=== PATIENT | female | born 1995 | race Caucasian/White ===

== ENCOUNTER 2019-05-23 19:10 | Outpatient (CLI) | payer BC, SELFPAY ==
[2019-05-23 19:17] VITALS: RESP 16; TEMP 36.4
[2019-05-23] MEDS: acetaminophen 500 mg Tablet 1000 MG PO (20:01)
[2019-05-23 20:31] LABS: Specific Gravity, Urine 1.005 (1.005-1.030); Urine Appearance SL Hazy (CLEAR); Urine Color Yellow (Yellow); pH Urine 8 (5-7)
[2019-05-23 20:32] LABS: Bacteria Urine TRACE; Bilirubin Urine Neg (NEGATIVE); Blood Urine Neg (Negative); Glucose Urine UA Norm (Normal); Ketones Urine Negative (Negative); Leukocyte Esterase Urine Negative (Negative); Nitrate Urine Negative (Negative); Protein Urine Neg (Negative); Urobilinogen Urine Norm (Negative); WBC Urine 0-4 /hpf (0-5)
[2019-05-23 20:38] VITALS: BP 118/72; PULSE 97; RESP 20; TEMP 36.4
== END 2019-05-23 20:50 | disposition home or self-care (01) ==
LOC: OPOB 19:15 → OBGYN 20:41 → OPOB 05-27 17:35
PROVIDERS: Family Provider Family Medicine; Visit Provider Family Medicine
DX: O26.899 Other specified pregnancy related conditions, unspecified trimester (principal); Z3A.00 Weeks of gestation of pregnancy not specified; R10.9 Unspecified abdominal pain
CPT/HCPCS: 81001; 99211

== ENCOUNTER 2019-05-28 15:43 | Outpatient (CLI) | payer BC, SELFPAY ==
[2019-05-28] VITALS (7 sets, daily range): BP systolic 0–157; BP diastolic 0–83; PULSE 98–107; RESP 18; TEMP 37.5; BMI 51.2
[2019-05-28 16:24] LABS: Nitrazine Paper, PH Negative
== END 2019-05-28 16:52 | disposition home or self-care (01) ==
LOC: OPOB 15:56 → OBGYN 16:44 → OPOB 05-30 13:31
PROVIDERS: Family Provider Family Medicine; Visit Provider Family Medicine
DX: O26.899 Other specified pregnancy related conditions, unspecified trimester (principal); Z3A.00 Weeks of gestation of pregnancy not specified; N89.8 Other specified noninflammatory disorders of vagina
CPT/HCPCS: 83986; 99211

== ENCOUNTER 2019-06-15 20:05 | Inpatient (IN) | payer BC, SELFPAY ==
[2019-06-15] VITALS (43 sets, daily range): BP systolic 0–185; BP diastolic 0–111; PULSE 107–130; RESP 18; TEMP 36.7; O2SAT 98–100; BMI 50.6
[2019-06-15] MEDS: lactated ringers 1,000 ML 999 ML IV ×2 (20:35→22:12)
[2019-06-15 20:57] LABS: Basophils % 0.2 %; Eosinophils # 0.1 10^3/uL (0.0-0.8); Eosinophils % 0.8 %; Hematocrit 34.7 % (37.0-47.0); Hemoglobin 10.9 g/dL (11.5-15.3); Lymphocytes # 4.1 10^3/uL (0.8-4.8); Lymphocytes % 31.7 %; Mean Corpuscular HGB Conc 31.4 g/dL (30.0-36.0); Mean Corpuscular Hemoglobin 27.7 pg (28.0-34.0); Mean Corpuscular Volume 88.1 fL (81-99); Mean Platelet Volume 12.6 fL (7.4-10.4); Monocytes # 0.8 10^3/uL (0.2-0.9); Monocytes % 5.9 %; Neutrophils # 7.9 10^3/uL (1.8-7.7); Neutrophils % 60.4 %; Nucleated Red Blood Cells % 0 %; Platelet Count 197 10^3/cmm (130-400); Red Blood Count 3.94 10^6/uL (4.1-5.3); Red Cell Distribution Width 15.9 % (12.1-15.1)
[2019-06-15] MEDS: ondansetron 2 mg/ML SDV 2 mL 4 MG IVP (21:10)
[2019-06-15 21:13] LABS: Slide Review Slide Review Perform
[2019-06-15] MEDS: lactated ringers 1,000 ML 125 ML (21:30)
--- NOTE | 2019-06-15 21:56 | P.ANES_ITS ---
Pre-Anesthetic Assessment Pre-Anesthetic Assessment: Height/Weight: Height 1.6 m Weight 129.727 kg Temp Pulse Resp BP Pulse Ox 98.1 F 120 H 18 164/78 98 06/15/19 20:42 06/15/19 21:53 06/15/19 20:42 06/15/19 21:53 06/15/19 21:52 Preop Diagnosis: IUP Proposed Procedure: epdiural Social: Social History: No alcohol and No tobacco Exam: Pre-Anes Outpt Exam: alert, oriented x 3, clear to auscultation bilaterally and regular rate & rhythm Airway: Cervical ROM: WNL MP: 2 Dentition: Full Pulmonary: Pulmonary: None reported CV/HEM: CV/HEM: HTN : : None reported Hepatic: Hepatic: None reported GI: GI: None reported Metabolic: Metabolic: Morbid obesity Musc/skel: Musc/skel: None reported Neuropsych: Neuropsych: None reported Anesthetic Plan: ASA status: II Anesthesia: Regional (specify below) (epidural) Risk of > 500 ml blood loss (7ml/kg in children): Yes, adequate IV access and fluids planned Meds/Allergies Current Medications: Current Medications Generic Name Dose Route Start Last Admin Trade Name Freq PRN Reason Stop Dose Admin Ondansetron HCl 4 mg 06/15/19 20:41 06/15/19 21:10 Zofran IVP 4 mg Q4H PRN Administration NAUSEA AND VOMITI NG PFSH Anesthesia Female Reproductive History: : 2 Data Anesthesia CBC & Chem 7: 06/15/19 20:44 Other Labs: Laboratory Results - last 48 hr 06/15/19 20:44 WBC 13.0 H RBC 3.94 L Hgb 10.9 L Hct 34.7 L MCV 88.1 MCH 27.7 L MCHC 31.4 RDW 15.9 H Plt Count 197 MPV 12.6 H Neut % (Auto) 60.4 Lymph % (Auto) 31.7 [place] % (Auto) 5.9 Eos % (Auto) 0.8 Baso % (Auto) 0.2 Neut # (Auto) 7.9 H Lymph # (Auto) 4.1 [place] # (Auto) 0.8 Eos # (Auto) 0.1 Baso # (Auto) 0.0 Nucleated RBC % (auto) 0 Nucleated RBCs # 0.0 Cardiac Studies: No Data to Display
--- NOTE | 2019-06-15 21:57 | ANES.PROC ---
Anesthesia Procedures Procedure/Date: 06/15/19 Epidural: Time Out Performed: Yes Consents Signed: Procedure Consent Consent: requested by attending/covering physician, from patient, risks and benefits reviewed and patient agrees to proceed Lumbar Level: L2-L3 Epidural position: sitting Epidural procedure: sterile prep of area, 1% lidocaine to numb the area, 18 g needle, negative for paresthesia passed, test dose given, 1.5% xylocaine 1:200k epi (3 cc negative), placed PCEA, no systemic response, sterile dressing applied, L.U.D. no apparent complications and 0.2% Ropiavacaine @ mls/hr (13) Additional Comments: loss of resistance at 6 cm, threaded to 11 cm, bolused bupivicaine 0.25% 8 cc w/fentanyl 100 mcg
[2019-06-15] MEDS: alum-mag-hydroxide-sime 30 mL UDC PO (22:12)
[2019-06-15] MEDS: oxytocin 30 UNIT/500 ML BAG 600 UNIT IV (23:36)
[2019-06-16] VITALS (19 sets, daily range): BP systolic 0–165; BP diastolic 0–89; PULSE 86–114; RESP 16–19; TEMP 36.4–36.9; O2SAT 94–99
--- NOTE | 2019-06-16 00:13 | P.PCNOB_ITS ---
Delivery Note: Date of delivery: 06/16/19 Pre-Delivery Course: The patient is a 2 para 1-0-0-1 with an estimated gestational age of 38 weeks who presented to the hospital with spontaneous rupture of membranes. Her membranes ruptured approximately an hour prior to admission to the hospital. She presented to the hospital where her contractions became more consistent and painful. An epidural was placed. She progressed to complete without difficulty. Her was unremarkable. She was GBS negative. The remainder of her labs were within normal limits. Delivery: DELIVERY: The patient progressed to complete without difficulty. She delivered a male with a weight of 8 pounds 4 ounces with Apgars of 8, 9. The baby was delivered from the SOREN position. The baby's mouth and nose were suctioned at the site of the perineum. The baby was then completely delivered and placed on the mother's abdomen. The cord was then clamped and cut. There was no nuchal cord. There was no meconium. The placenta and 3 vessel cord were delivered intact shortly thereafter. The perineum and vaginal vault were carefully examined. No lacerations were noted. Both the mother and the baby were in stable condition. 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
[2019-06-16] MEDS: lanolin oint 7 gm 1 APPLIC TOPICAL (02:07)
[2019-06-16] MEDS: benzocaine-menthol 78 gm Canister 1 SPRAY TOPICAL (02:07)
[2019-06-16] MEDS: prenatal vitamin Capsule 1 CAP PO (08:14)
[2019-06-16] MEDS: docusate sodium 100 mg Capsule PO ×2 (08:14→17:41)
[2019-06-16] MEDS: acetaminophen-codeine 300-30mg Tablet PO ×3 (08:39→22:03)
[2019-06-16 12:30] LABS: Hematocrit 30.9 % (37.0-47.0); Hemoglobin 9.6 g/dL (11.5-15.3); Mean Corpuscular HGB Conc 31.1 g/dL (30.0-36.0); Mean Corpuscular Hemoglobin 26.7 pg (28.0-34.0); Mean Corpuscular Volume 86.1 fL (81-99); Mean Platelet Volume 12.1 fL (7.4-10.4); Platelet Count 179 10^3/cmm (130-400); Red Blood Count 3.59 10^6/uL (4.1-5.3); Red Cell Distribution Width 15.9 % (12.1-15.1); White Blood Count 11.1 10^3/uL (4.0-10.0)
[2019-06-17 04:00] VITALS: BP 114/78; PULSE 86; RESP 16; O2SAT 98
[2019-06-17] MEDS: acetaminophen-codeine 300-30mg Tablet PO (04:41)
--- NOTE | 2019-06-17 07:21 | PM.OBGYDC ---
Discharge Providers ARCHITECTURAL DESIGN PROFESSOR Date of Admission: 06/15/19 20:05 Date of Discharge: 06/17/19 Attending Provider at Admission: Rafael Molina MD Attending Provider at Discharge: Rafael Molina MD Diagnoses at Discharge Discharge Diagnosis (1) 38 weeks gestation of : Status: Acute (2) Spontaneous vaginal delivery: Status: Acute Reason for Visit Reason for Visit: Reason For Visit: LABOR Hospital Course Hospital Course: The patient presented to the hospital with spontaneous rupture of membranes. She then progressed to complete and had an unremarkable delivery of a healthy male infant. Please see delivery note for specifics regarding the Labor and Delivery. , the patient has done very well. Her bleeding has been within normal limits. She has breast-fed well. Her pain has been well controlled with Tylenol 3. Information Peripartum Data: Delivery Method: Vaginal Episiotomy description: None Physical Exam Narrative: EXAM NARRATIVE: The patient is alert. She appears comfortable. Her heart has a regular rate and rhythm with no murmurs appreciated. Lungs are clear to auscultation bilaterally. Her fundus is firm and below the umbilicus. Urinary Catheter Management^: Lacey: Cath Placed During This Visit: no Discharge Data Data Completed and Pending: Labs from last 24 hours 06/16/19 12:20 WBC 11.1 H RBC 3.59 L Hgb 9.6 L Hct 30.9 L MCV 86.1 MCH 26.7 L MCHC 31.1 RDW 15.9 H Plt Count 179 MPV 12.1 H Vitals: Last Vital Signs Temp 97.7 F 06/16/19 22:00 Pulse 86 06/17/19 04:00 Resp 16 06/17/19 04:00 BP 114/78 06/17/19 04:00 Pulse Ox 98 06/17/19 04:00 Discharge Plan Discharge Patient Disposition: Home, Self-Care Condition: Stable Prescriptions: New ibuprofen 800 mg Tablet 800 mg PO TID Qty: 30 RF: 0 acetaminophen-codeine 300-30 mg Tablet 1 - 2 tab PO Q4H PRN (Reason: Moderate Pain) Qty: 30 RF: 0 Continued 28 mg iron- 800 mcg Tablet 1 tab PO DAILY Qty: 90 RF: 0 Discontinued ondansetron HCl [Zofran] 4 mg Tablet 4 mg PO Q6H RF: 0 Discharge Orders: Discharge Order (Routine); Ordered 06/17/19 Ordered By: Rafael Molina Referrals: Rafael Molina MD [Family Provider] - 6 Weeks Discharge Diet: Regular Discharge Activity: Limit activity as instructed Discharge Attestations ARCHITECTURAL DESIGN PROFESSOR Time Spent in Discharge Care*: less than 30 min Coding Level of Care Code Acute [place] Mixer for Chg Fwd Diagnoses 38 weeks gestation of Z3A.38 Spontaneous vaginal delivery O80
[2019-06-17] MEDS: prenatal vitamin Capsule 1 CAP PO (08:22)
[2019-06-17] MEDS: docusate sodium 100 mg Capsule PO (08:23)
[2019-06-17 08:24] VITALS: BP 145/86; PULSE 99; RESP 15; TEMP 36.8
[2019-06-17 08:30] VITALS: BP 145/86; PULSE 99; RESP 15; TEMP 36.8
== END 2019-06-17 09:08 | disposition home or self-care (01) | DRG 807 ==
PROVIDERS: Admitting Provider Family Medicine; Family Provider Family Medicine; Visit Provider Family Medicine
DX: O80 Encounter for full-term uncomplicated delivery (principal); Z37.0 Single live birth; Z3A.38 38 weeks gestation of pregnancy
CPT/HCPCS: 12345; 51702; 59409; 83986; 85025; 85027; 96375; 99211; J2405; J2795

== ENCOUNTER 2020-01-04 07:02 | Outpatient (CLI) | payer BC, SELFPAY ==
--- NOTE | 2020-01-04 07:18 | US_ITS ---
WS: [id number] ULTRASOUND BREAST RIGHT TECHNIQUE: Ultrasound right breast focused area of concern. CLINICAL INFORMATION: RIGHT BREAST LUMP COMPARISON: None. FINDINGS: Ultrasound right breast 10:00 position. In the area of concern, is a focal echogenic lesion measuring 8.8 x 4.0 x 9.9 mm most consistent with a lipoma or fibroadenolipoma. Findings have a benign appeara nce. Incidentally noted is a normal-appearing lymph node at the 10:00 position 7 cm from the nipple measur ing 4.4 x 3.6 x 4.4 mm US/US breast RT limited* [id number] IMPRESSION: BI-RADS 2 benign Recommend annual screening mammography age 40
== END 2020-01-04 07:03 | disposition home or self-care (01) ==
LOC: RAD 07:07
PROVIDERS: PCP Family Medicine; Visit Provider Family Medicine
DX: N63.11 Unspecified lump in the right breast, upper outer quadrant (principal)
CPT/HCPCS: 76642

== ENCOUNTER 2020-02-18 18:42 | Emergency (ER) | payer BC, OTHER, SELFPAY ==
[2020-02-18 18:59] VITALS: BP 163/94; PULSE 98; RESP 18; TEMP 36.5; O2SAT 99; BMI 51.3
--- NOTE | 2020-02-18 19:07 | W.ED.ABDPA2 ---
HPI - Abdominal Pain General: Chief Complaint: Abdominal Pain Stated Complaint: ab pain, reffered from urgent care Time Seen by Provider: 02/18/20 19:07 Source: patient Mode of arrival: ambulatory Limitations: no limitations History of Present Illness: HPI narrative: Patient comes in today with bilateral flank pain and suprapubic abdominal pain. Patient denies any vaginal discharge or bleeding. Patient has a history of PCOS. Patient appears well. Patient appears in mild pain. MD elicited complaint: abdominal pain Review of Systems General: Reports: 10 or more systems reviewed and unremarkable except in HPI and below GI: Reports: abdominal pain (suprapubic) : Reports: flank pain and difficulty voiding PFS ED PFSH: Social History (Updated 02/18/20 @ 18:00 by Hiwot Valdez LPN) Smoking and tobacco status: never smoked Physical Exam Const: COMMON NORMALS: no acute distress and patient oriented x3 GENERAL APPEARANCE: cooperative HENMT: COMMON NORMALS: normocephalic and Normal external nose present HEAD & SCALP: normal to inspection and normocephalic NOSE: Normal external nose present MOUTH: Normal oral and palatal mucosa present Eye: GENERAL EYE: appearance normal, both eyes and all related structures Neck/C-Spine: COMMON NORMALS: full ROM Chest: COMMONS NORMALS: normal inspection of the chest Resp: COMMON NORMALS: normal respiratory effort EFFORT & INSPECTION: Yes able to speak in complete sentences Cardio: COMMON NORMALS: regular rate and regular rhythm RATE: regular rate RHYTHM: regular rhythm GI: PALPATION: Yes Tenderness to palpation present (GI) (suprapubic) : BLADDER/KIDNEY EXAM: Yes CVA tenderness bilateral (mild) Back/Pelvis: COMMON NORMALS: thoracic and lumbar spine normal to inspection GENERAL BACK: Yes CVA tenderness Extremity: COMMON NORMALS: normal to inspection Neuro: COMMON NORMALS: patient oriented x3 and moves all extremities Psych: COMMON NORMALS: mental status grossly normal and cooperative Skin: COMMON NORMALS: no rashes or lesions noted GENERAL SKIN EXAM: no rashes or lesions noted Course Vital Signs: Vital signs: Vital Signs Temperature 97.4 F L 02/18/20 20:05 Pulse Rate 87 02/18/20 20:05 Respiratory Rate 18 02/18/20 20:05 Blood Pressure 118/84 02/18/20 20:05 Pulse Oximetry 99 02/18/20 20:05 MDM - Abdominal Pain MDM Narrative: Medical decision making narrative: Patient comes in today with bilateral flank pain and lower abdominal pain. Patient appears well. Patient appears in no acute distress. Respirations are even lungs are clear to auscultation. Abdomen soft nontender. No acute distress is noted. Differential diagnosis includes but not limited to appendicitis, colitis, pyelonephritis, cystitis. Urinalysis was clear. CBC shows a mild elevation of white count of 12.4. Otherwise laboratory values were normal. CT scan of the abdomen pelvis noted a colitis but otherwise normal exam. Reviewed with patient recommended treatment with Cipro and Flagyl for 5 days. Encourage plenty of fluids and rest and follow-up with primary care for further treatment and evaluation. Patient reported understanding. Lab Data: Labs: Lab Results 02/18/20 02/18/20 02/18/20 Range/Units 19:10 19:18 19:18 WBC 12.4 H (4.0-10.0) 10^3/ uL RBC 5.23 (4.1-5.3) 10^6/u L Hgb 13.1 (11.5-15.3) g/dL Hct 42.3 (37.0-47.0) % MCV 80.9 L (81-99) fL MCH 25.0 L (28.0-34.0) pg MCHC 31.0 (30.0-36.0) g/dL RDW 15.2 H (12.1-15.1) % Plt Count 282 (130-400) 10^3/c mm MPV 10.9 H (7.4-10.4) fL Neut % (Auto) 58.4 % Lymph % (Auto) 33.1 % [place] % (Auto) 4.6 % Eos % (Auto) 2.9 % Baso % (Auto) 0.4 % Neut # (Auto) 7.24 (1.8-7.7) 10^3/u L Lymph # (Auto) 4.1 (0.8-4.8) 10^3/u L [place] # (Auto) 0.6 (0.2-0.9) 10^3/u L Eos # (Auto) 0.4 (0.0-0.8) 10^3/u L Baso # (Auto) 0.1 (0.0-0.1) 10^3/u L Nucleated RBC % (a uto) 0 % Nucleated RBCs # 0.0 /100WBC Sodium 135 L (136-145) mmol/L Potassium 4.2 (3.5-5.1) mmol/L Chloride 100 (98-107) mmol/L Carbon Dioxide 24 (22-29) mmol/L Anion Gap 15.2 (5-19) BUN 12 (6-20) mg/dL Creatinine 0.7 (0.5-0.9) mg/dL GFR Calculation 100.4 (90-130) mL/min Glucose 116 H (65-115) mg/dL Calculated Osmolal ity 281 L (285-295) mOsm/k g Calcium 9.6 (8.5-10.5) mg/dL Total Bilirubin 0.2 (0.15-1.2) mg/dL AST 30 (0-32) U/L ALT 28 (0-33) U/L Alkaline Phosphata se 161 H (35-105) IU/L Total Protein 7.7 (6.6-8.7) g/dL Albumin 4.5 (3.5-5.2) g/dL Globulin 3.2 (1.3-4.6) g/dL Lipase 31 (13-60) U/L HCG, Qual (Negative) Urine Color Yellow (Yellow) Urine Appearance Clear (CLEAR) Urine pH 6.5 (5-7) Ur Specific Gravit y 1.010 (1.005-1.030) Urine Protein Neg (Negative) Urine Glucose (UA) Norm (Normal) Urine Ketones Negative (Negative) Urine Blood Neg (Negative) Urine Nitrate Negative (Negative) Urine Bilirubin Neg (Negative) Urine Urobilinogen Neg (Negative) mg/dL Ur Leukocyte Zaida ase Negative (Negative) 02/18/20 Range/Units 19:18 WBC (4.0-10.0) 10^3/ uL RBC (4.1-5.3) 10^6/u L Hgb (11.5-15.3) g/dL Hct (37.0-47.0) % MCV (81-99) fL MCH (28.0-34.0) pg MCHC (30.0-36.0) g/dL RDW (12.1-15.1) % Plt Count (130-400) 10^3/c mm MPV (7.4-10.4) fL Neut % (Auto) % Lymph % (Auto) % [place] % (Auto) % Eos % (Auto) % Baso % (Auto) % Neut # (Auto) (1.8-7.7) 10^3/u L Lymph # (Auto) (0.8-4.8) 10^3/u L [place] # (Auto) (0.2-0.9) 10^3/u L Eos # (Auto) (0.0-0.8) 10^3/u L Baso # (Auto) (0.0-0.1) 10^3/u L Nucleated RBC % (a uto) % Nucleated RBCs # /100WBC Sodium (136-145) mmol/L Potassium (3.5-5.1) mmol/L Chloride (98-107) mmol/L Carbon Dioxide (22-29) mmol/L Anion Gap (5-19) BUN (6-20) mg/dL Creatinine (0.5-0.9) mg/dL GFR Calculation (90-130) mL/min Glucose (65-115) mg/dL Calculated Osmolal ity (285-295) mOsm/k g Calcium (8.5-10.5) mg/dL Total Bilirubin (0.15-1.2) mg/dL AST (0-32) U/L ALT (0-33) U/L Alkaline Phosphata se (35-105) IU/L Total Protein (6.6-8.7) g/dL Albumin (3.5-5.2) g/dL Globulin (1.3-4.6) g/dL Lipase (13-60) U/L HCG, Qual Negative (Negative) Urine Color (Yellow) Urine Appearance (CLEAR) Urine pH (5-7) Ur Specific Gravit y (1.005-1.030) Urine Protein (Negative) Urine Glucose (UA) (Normal) Urine Ketones (Negative) Urine Blood (Negative) Urine Nitrate (Negative) Urine Bilirubin (Negative) Urine Urobilinogen (Negative) mg/dL Ur Leukocyte Zaida ase (Negative) Discharge Plan Discharge Patient Disposition: Home Clinical Impression: Colitis Condition: Stable Prescriptions: New ciprofloxacin HCl 500 mg tablet 500 mg PO BID Qty: 10 RF: 0 metronidazole 500 mg tablet 500 mg PO BID Qty: 10 RF: 0 ondansetron HCl 4 mg tablet 4 mg PO Q8H PRN (Reason: nausea and vomiting) Qty: 7 RF: 0 No Action Mirena 20 mcg/24 hours (5 yrs) 52 mg Intrauterine Device See Rx Instructions .ROUTE .COMPLEX RF: 0 ibuprofen 800 mg tablet 800 mg PO TID PRN (Reason: Pain) RF: 0 Discharge Orders: Discharge Order (Routine); Ordered 02/18/20 Ordered By: Jacob Sims Referrals: Rafael Molina MD [Primary Care Provider] - Discharge Diet: Usual diet Discharge Activity: Increase activity as tolerated Patient Instructions: Infectious Colitis (ED) Activity Restrictions/Additional Instructions: Drink plenty of fluids. Take medications as directed. Follow-up with primary care for further treatment and evaluation. Return to the ER for new concerns. 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
[2020-02-18 19:35] LABS: Basophils # 0.1 10^3/uL (0.0-0.1); Basophils % 0.4 %; Eosinophils # 0.4 10^3/uL (0.0-0.8); Eosinophils % 2.9 %; Hematocrit 42.3 % (37.0-47.0); Hemoglobin 13.1 g/dL (11.5-15.3); Lymphocytes # 4.1 10^3/uL (0.8-4.8); Lymphocytes % 33.1 %; Mean Corpuscular Volume 80.9 fL (81-99); Mean Platelet Volume 10.9 fL (7.4-10.4); Monocytes # 0.6 10^3/uL (0.2-0.9); Monocytes % 4.6 %; Neutrophils # 7.24 10^3/uL (1.8-7.7); Neutrophils % 58.4 %; Nucleated Red Blood Cells % 0 %; Platelet Count 282 10^3/cmm (130-400); Red Blood Count 5.23 10^6/uL (4.1-5.3); Red Cell Distribution Width 15.2 % (12.1-15.1); White Blood Count 12.4 10^3/uL (4.0-10.0)
[2020-02-18] MEDS: sodium chloride 0.9% 1,000 ML 999 ML IV (19:35)
[2020-02-18] MEDS: ketorolac 30 mg/mL INJ 15 MG IVP (19:35)
[2020-02-18 19:36] LABS: Add Urine Microscopic? NO
[2020-02-18 19:41] LABS: Bilirubin Urine Neg (Negative); Blood Urine Neg (Negative); Glucose Urine UA Norm (Normal); Ketones Urine Negative (Negative); Leukocyte Esterase Urine Negative (Negative); Nitrate Urine Negative (Negative); Protein Urine Neg (Negative); Urine Appearance Clear (CLEAR); Urine Color Yellow (Yellow); Urobilinogen Urine Neg (Negative); pH Urine 6.5 (5-7)
--- NOTE | 2020-02-18 19:44 | CTR_ITS ---
PROCEDURE INFORMATION: Exam: CT Abdomen And Pelvis With Contrast Exam date and time: 02/18/2020 8:09 PM Age: 25 years old Clinical indication: Abdominal pain; Additional info: Diffuse abd pain TECHNIQUE: Imaging protocol: Computed tomography of the abdomen and pelvis with intravenous contrast. Radiation optimization: All CT scans at this facility use at least one of these dose optimization techniques: automated exposure control; mA and/or kV adjustment per patient size (includes targeted exams where dose is matched to clinical indication); or iterative reconstruction. Contrast material: OMNI 300; Contrast volume: 95 ml; Contrast route: INTRAVENOUS (IV); COMPARISON: CT abdomen pelvis w con* [id number] 02/26/2017 12:31 AM RADIATION DOSE METRICS: Total DLP (mGy-cm): 2330.88 FINDINGS: Liver: Normal. No mass. Gallbladder and bile ducts: Normal. No calcified stones. No ductal dilation. Pancreas: Normal. No ductal dilation. Spleen: Normal. No splenomegaly. Adrenals: Normal. No mass. Kidneys and ureters: Normal. No hydronephrosis. Stomach and bowel: Probable peristaltic contraction of the right colon near the junction of the right transverse colon and hepatic flexure versus focal mild colitis. Appendix: Normal appendix. Intraperitoneal space: Unremarkable. No free air. No significant fluid collection. Vasculature: Unremarkable. No abdominal aortic aneurysm. Lymph nodes: Unremarkable. No enlarged lymph nodes. Urinary bladder: Unremarkable as visualized. Reproductive: IUD within the uterus. Bones/joints: Unremarkable. No acute fracture. Soft tissues: Unremarkable. CT/CT abdomen pelvis w con* [id number] IMPRESSION: Probable peristaltic contraction of the right colon near the junction of the right transverse colon and hepatic flexure versus focal mild colitis. Radiation Dose CTDIVOL = (mGy): DLP = 2330.88 (mGy-cm)
[2020-02-18] MEDS: ondansetron 2 mg/ML SDV 2 mL 4 MG IVP (19:45)
[2020-02-18 19:52] LABS: HCG, Serum Qual Negative (Negative)
[2020-02-18 19:56] LABS: Alanine Aminotransferase 28 U/L (0-33); Albumin Level 4.5 g/dL (3.5-5.2); Alkaline Phosphatase 161 IU/L (35-105); Anion Gap 15.2 (5-19); Aspartate Amino Transferase 30 U/L (0-32); Blood Urea Nitrogen 12 mg/dL (6-20); Calcium 9.6 mg/dL (8.5-10.5); Carbon Dioxide 24 mmol/L (22-29); Chloride 100 mmol/L (98-107); Globulin 3.2 g/dL (1.3-4.6); Glomerular Filtration Rate 100.4 mL/min (90-130); Glucose 116 mg/dL (65-115); Lipase 31 U/L (13-60); Osmolality Calculated 281 mOsm/kg (285-295); Potassium 4.2 mmol/L (3.5-5.1); Sodium 135 mmol/L (136-145); Total Bilirubin 0.2 mg/dL (0.15-1.2); Total Protein 7.7 g/dL (6.6-8.7)
[2020-02-18 20:05] VITALS: BP 118/84; PULSE 87; RESP 18; TEMP 36.3; O2SAT 99
[2020-02-18] MEDS: iohexol 300 mg/mL 100 mL Btl IV (20:14)
[2020-02-18] MEDS: ciprofloxacin 500 mg Tablet PO (20:52)
[2020-02-18] MEDS: metroNIDAZOLE 500 MG Tablet PO (20:52)
[2020-02-18 21:11] VITALS: BP 144/75; PULSE 84; RESP 16; TEMP 36.2; O2SAT 99
== END 2020-02-18 21:03 | disposition home or self-care (01) ==
PROVIDERS: Emergency Medicine; Emergency Provider Nurse Practitioner Family; PCP Family Medicine
DX: K52.9 Noninfective gastroenteritis and colitis, unspecified (principal)
CPT/HCPCS: 12345; 74177; 80053; 81000; 81003; 83690; 84703; 85025; 96361; 96374; 96375; 99283; 99284; J1885; J2405; J7030; Q9967

== ENCOUNTER → 2020-07-23 17:14 | Outpatient (BNVA) | payer SELFPAY | PROVIDERS: PCP Family Medicine; Visit Provider Nurse Practitioner Family | DX: M79.674 Pain in right toe(s) (principal) | CPT/HCPCS: 73630 ==

== ENCOUNTER → 2021-03-02 09:57 | Outpatient (BNVA) | payer OTHER, SELFPAY | PROVIDERS: PCP Family Medicine | DX: Z20.822 Contact with and (suspected) exposure to COVID-19 (principal) | CPT/HCPCS: 87635 ==

== ENCOUNTER 2021-05-02 17:29 | Emergency (ER) | payer SELFPAY ==
[2021-05-02 17:53] VITALS: BP 158/103; PULSE 95; RESP 18; TEMP 36.8; O2SAT 99; BMI 47.5
[2021-05-02 19:22] LABS: Bilirubin Urine Neg (Negative); Blood Urine 2+ (Negative); Glucose Urine UA Norm (Normal); Ketones Urine Negative (Negative); Nitrate Urine Negative (Negative); Protein Urine Neg (Negative); Specific Gravity, Urine 1.015 (1.005-1.030); Urine Appearance Clear (CLEAR); Urine Color Straw (Yellow); Urobilinogen Urine Norm (Negative); pH Urine 6 (5-7)
[2021-05-02 19:23] LABS: Add Urine Culture? No; Add Urine Microscopic? YES; Bacteria Urine TRACE /hpf; Leukocyte Esterase Urine Trace (Negative); Mucus Urine TRACE /hpf; RBC Urine 0-4 /hpf (0-2)
[2021-05-02 20:00] VITALS: BP 143/93; PULSE 89; RESP 18; O2SAT 100
[2021-05-02 20:29] LABS: Basophils # 0.1 10^3/uL (0.0-0.1); Basophils % 0.5 %; Eosinophils # 0.3 10^3/uL (0.0-0.8); Eosinophils % 2.9 %; Hematocrit 43.5 % (37.0-47.0); Hemoglobin 13.9 g/dL (11.5-15.3); Lymphocytes # 2.8 10^3/uL (0.8-4.8); Lymphocytes % 28.1 %; Mean Corpuscular Hemoglobin 27.5 pg (28.0-34.0); Mean Corpuscular Volume 86.1 fl (81-99); Mean Platelet Volume 11.7 fL (7.4-10.4); Monocytes # 0.6 10^3/uL (0.2-0.9); Monocytes % 5.9 %; Neutrophils # 6.14 10^3/uL (1.8-7.7); Neutrophils % 62.2 %; Nucleated Red Blood Cells % 0 %; Platelet Count 237 10^3/cmm (130-400); Red Blood Count 5.05 10^6/uL (4.1-5.3); Red Cell Distribution Width 14.1 % (12.1-15.1); White Blood Count 9.9 10^3/uL (4.0-10.0)
[2021-05-02 20:46] LABS: HCG, Serum Qual Negative (Negative)
[2021-05-02 20:51] LABS: Alanine Aminotransferase 12 U/L (0-33); Albumin Level 4.2 g/dL (3.5-5.2); Alkaline Phosphatase 100 IU/L (35-105); Anion Gap 18.1 (5-19); Aspartate Amino Transferase 12 U/L (0-32); Blood Urea Nitrogen 11 mg/dL (6-20); Calcium 8.4 mg/dL (8.5-10.5); Carbon Dioxide 21 mmol/L (22-29); Chloride 103 mmol/L (98-107); Globulin 2.5 g/dL (1.3-4.6); Glomerular Filtration Rate 99.6 mL/min (90-130); Glucose 83 mg/dL (65-115); Lipase 26 U/L (13-60); Osmolality Calculated 285 mOsm/kg (285-295); Potassium 4.1 mmol/L (3.5-5.1); Sodium 138 mmol/L (136-145); Total Bilirubin 0.2 mg/dL (0.15-1.2); Total Protein 6.7 g/dL (6.6-8.7)
--- NOTE | 2021-05-02 21:41 | CTR_ITS ---
PROCEDURE INFORMATION: Exam: CT Abdomen And Pelvis With Contrast Exam date and time: 05/02/2021 9:41 PM Age: 26 years old Clinical indication: Nausea and vomiting; Abdominal pain; Flank; Right; Additional info: Abd pain, n/v TECHNIQUE: Imaging protocol: Computed tomography of the abdomen and pelvis with contrast. Radiation optimization: All CT scans at this facility use at least one of these dose optimization techniques: automated exposure control; mA and/or kV adjustment per patient size (includes targeted exams where dose is matched to clinical indication); or iterative reconstruction. Contrast material: OMNI 300; Contrast volume: 95 ml; Contrast route: INTRAVENOUS (IV); COMPARISON: CT abdomen pelvis w con* [id number] 02/18/2020 8:08 PM RADIATION DOSE METRICS: Total DLP (mGy-cm): FINDINGS: Diaphragm: Hiatal hernia. Liver: Normal. No mass. Gallbladder and bile ducts: Normal. No calcified stones. No ductal dilation. Pancreas: Normal. No ductal dilation. Spleen: Normal. No splenomegaly. Adrenal glands: Normal. No mass. Kidneys and ureters: Normal. No hydronephrosis. Stomach and bowel: Unremarkable. No obstruction. No mucosal thickening. Appendix: The appendix is visualized and is normal. Intraperitoneal space: Unremarkable. No free air. No significant fluid collection. Vasculature: Unremarkable. No abdominal aortic aneurysm. Lymph nodes: Unremarkable. No enlarged lymph nodes. Urinary bladder: Unremarkable as visualized. Reproductive: Retroflexed retroverted uterus. IUD in standard location within the endometrial cavity. 3.0 cm oval cyst or dominant follicle in the right ovary, Hounsfield units less than 20. The left ovary is unremarkable. Bones/joints: Unremarkable. No acute fracture. Soft tissues: Unremarkable. CT/CT abdomen pelvis w con* [id number] IMPRESSION: 1. No acute abnormality identified in the abdomen or pelvis. 2. 3.0 cm cyst or dominant follicle in the right ovary. No further imaging is recommended. (Reference: Dashawn) References: Dashawn et al. Management of Incidental Adnexal Findings on CT and MRI: A White Paper of the ACR Incidental Findings Committee, J Am Nancy Radiol. 2019;17(2):248-254.
[2021-05-02] MEDS: iohexol 300 mg/mL 100 mL Btl IV (21:51)
--- NOTE | 2021-05-02 21:56 | ED_ITS ---
HPI - Abdominal Pain General: Chief Complaint: Abdominal Pain Stated Complaint: dizzy, dehydrated, abd pains Time Seen by Provider: 05/02/21 21:40 History of Present Illness: HPI narrative: Patient comes in today with complaints of right lower quadrant abdominal pain. Patient reports pain since Saturday. Patient was seen at urgent care and was referred to the ER for further evaluation and treatment with suspicion for pyelonephritis. Patient appears mildly unwell but nontoxic. Patient appears in moderate pain. Review of Systems General: Reports: 10 or more systems reviewed and unremarkable except in HPI and below : Reports: other (Right lower abdomen pain) [facility] ED PFSH: Social History (Updated 02/18/20 @ 18:00 by Hiwot Valdez LPN) Smoking and tobacco status: never smoked Physical Exam Const: COMMON NORMALS: no acute distress and patient oriented x3 GENERAL APPEARANCE: cooperative HENMT: COMMON NORMALS: normocephalic, TM's normal bilaterally and Normal external nose present HEAD & SCALP: normal to inspection and normocephalic NOSE: Normal external nose present TYMPANIC MEMBRANE: TM's normal bilaterally MOUTH: Normal oral and palatal mucosa present THROAT: posterior oropharynx normal Eye: GENERAL EYE: appearance normal, both eyes and all related structures Neck/C-Spine: COMMON NORMALS: full ROM Lymph: LYMPHATIC: no lymphadenopathy noted Chest: COMMONS NORMALS: normal inspection of the chest Resp: COMMON NORMALS: normal respiratory effort EFFORT & INSPECTION: Yes able to speak in complete sentences Cardio: COMMON NORMALS: regular rate and regular rhythm RATE: regular rate RHYTHM: regular rhythm GI: COMMON NORMALS: Soft to palpation PALPATION: Yes Soft to palpation and Yes Tenderness to palpation present (GI) Details: RLQ : BLADDER/KIDNEY EXAM: Yes CVA tenderness on the right Back/Pelvis: COMMON NORMALS: thoracic and lumbar spine normal to inspection GENERAL BACK: Yes CVA tenderness Extremity: COMMON NORMALS: normal to inspection Neuro: COMMON NORMALS: patient oriented x3 and moves all extremities Psych: COMMON NORMALS: mental status grossly normal and cooperative Skin: COMMON NORMALS: no rashes or lesions noted GENERAL SKIN EXAM: no rashes or lesions noted Course Vital Signs: Vital signs: Vital Signs Temperature 98.2 F 05/02/21 17:53 Pulse Rate 89 05/02/21 22:04 Respiratory Rate 18 05/02/21 20:00 Blood Pressure 151/93 05/02/21 22:04 Pulse Oximetry 100 05/02/21 22:04 MDM - Abdominal Pain MDM Narrative: Medical decision making narrative: 26-year-old female comes in today with complaints of right lower quadrant pain. On exam patient appears in moderate pain and mildly unwell. Exam notes right lower quadrant abdominal tenderness, tenderness of the right flank with percussion, vital signs are normal. Respirations are even. Differential diagnosis includes but not limited to appendicitis, ovarian cyst, pyelonephritis, UTI, constipation. Laboratory values were unremarkable. Urine had some blood in his white blood cells in it and a trace of esterase leukocyte. CT of the abdomen and pelvis indicated a ovarian cyst without any other active pathology. Patient was given a dose of Toradol for her ovarian pain. With discussion we went ahead and started patient on Cipro to cover for a urinary tract infection. She will be on 250 of Cipro twice a day for 5 days. Recommended patient follow-up with SOFTWARE BUSINESS ANALYST regarding her ovarian cyst. Recommend return to the ER for worsening symptoms or new concerns. Patient reported understanding. Lab Data: Labs: Lab Results 05/02/21 05/02/21 05/02/21 17:50 20:20 20:20 WBC 9.9 10^3/uL 10^3/ uL (4.0-10.0) RBC 5.05 10^6/uL 10^6 /uL (4.1-5.3) Hgb 13.9 g/dL g/dL (11.5-15.3) Hct 43.5 % % (37.0-47.0) MCV 86.1 fl fl (81-99) MCH 27.5 pg L pg (28.0-34.0) MCHC 32.0 g/dL g/dL (30.0-36.0) RDW 14.1 % % (12.1-15.1) Plt Count 237 10^3/cmm 10^3 /cmm (130-400) MPV 11.7 fL H fL (7.4-10.4) Neut % (Auto) 62.2 % % Lymph % (Auto) 28.1 % % [place] % (Auto) 5.9 % % Eos % (Auto) 2.9 % % Baso % (Auto) 0.5 % % Neut # (Auto) 6.14 10^3/uL 10^3 /uL (1.8-7.7) Lymph # (Auto) 2.8 10^3/uL 10^3/ uL (0.8-4.8) [place] # (Auto) 0.6 10^3/uL 10^3/ uL (0.2-0.9) Eos # (Auto) 0.3 10^3/uL 10^3/ uL (0.0-0.8) Baso # (Auto) 0.1 10^3/uL 10^3/ uL (0.0-0.1) Nucleated RBC % (a uto) 0 % % Nucleated RBCs # 0.0 /100WBC /100W BC Sodium 138 mmol/L mmol/L (136-145) Potassium 4.1 mmol/L mmol/L (3.5-5.1) Chloride 103 mmol/L mmol/L (98-107) Carbon Dioxide 21 mmol/L L mmol/ L (22-29) Anion Gap 18.1 (5-19) BUN 11 mg/dL mg/dL (6-20) Creatinine 0.7 mg/dL mg/dL (0.5-0.9) GFR Calculation 99.6 mL/min mL/mi n (90-130) Glucose 83 mg/dL mg/dL (65-115) Calculated Osmolal ity 285 mOsm/kg mOsm/ kg (285-295) Calcium 8.4 mg/dL L mg/dL (8.5-10.5) Total Bilirubin 0.2 mg/dL mg/dL (0.15-1.2) AST 12 U/L U/L (0-32) ALT 12 U/L U/L (0-33) Alkaline Phosphata se 100 IU/L IU/L (35-105) Total Protein 6.7 g/dL g/dL (6.6-8.7) Albumin 4.2 g/dL g/dL (3.5-5.2) Globulin 2.5 g/dL g/dL (1.3-4.6) Lipase 26 U/L U/L (13-60) HCG, Qual Urine Color Straw (Yellow) Urine Appearance Clear (CLEAR) Urine pH 6 (5-7) Ur Specific [place] 1.015 (1.005-1.030) Urine Protein Neg (Negative) Urine Glucose (UA) Norm (Normal) Urine Ketones Negative (Negative) Urine Blood 2+ H (Negative) Urine Nitrate Negative (Negative) Urine Bilirubin Neg (Negative) Urine Urobilinogen Norm mg/dL mg/dL (Negative) Ur Leukocyte Za[place] ase Trace H (Negative) Urine RBC 0-4 /hpf H /hpf (0-2) Urine WBC 5-10 /hpf H /hpf (0-5) Ur Squamous Epith Cells 5-10 /hpf H /hpf (0-5) Amorphous Sediment Not Reportable Urine Bacteria Trace /hpf /hpf (NONE) Urine Mucus Trace /hpf /hpf 05/02/21 20:20 WBC RBC Hgb Hct MCV MCH MCHC RDW Plt Count MPV Neut % (Auto) Lymph % (Auto) [place] % (Auto) Eos % (Auto) Baso % (Auto) Neut # (Auto) Lymph # (Auto) [place] # (Auto) Eos # (Auto) Baso # (Auto) Nucleated RBC % (a uto) Nucleated RBCs # Sodium Potassium Chloride Carbon Dioxide Anion Gap BUN Creatinine GFR Calculation Glucose Calculated Osmolal ity Calcium Total Bilirubin AST ALT Alkaline Phosphata se Total Protein Albumin Globulin Lipase HCG, Qual Negative (Negative) Urine Color Urine Appearance Urine pH Ur Specific Gravit y Urine Protein Urine Glucose (UA) Urine Ketones Urine Blood Urine Nitrate Urine Bilirubin Urine Urobilinogen Ur Leukocyte Zaida ase Urine RBC Urine WBC Ur Squamous Epith Cells Amorphous Sediment Urine Bacteria Urine Mucus Discharge Plan Discharge Patient Disposition: Home Clinical Impression: Cyst of right ovary Condition: Stable Prescriptions: New Cipro 250 mg tablet 250 mg PO BID Qty: 10 RF: 0 hydrocodone-acetaminophen 5-325 mg tablet 1 tab PO Q8H PRN (Reason: pain) Qty: 6 RF: 0 No Action Mirena 20 mcg/24 hours (5 yrs) 52 mg Intrauterine Device See Rx Instructions .ROUTE .COMPLEX RF: 0 Discharge Orders: Discharge ED (Routine); Ordered 05/02/21 Ordered By: Jacob Sims Referrals: Rafael Molina MD [Primary Care Provider] - Discharge Diet: Usual diet Discharge Activity: Increase activity as tolerated Patient Instructions: Ovarian Cyst (ED), Opioid Safety Activity Restrictions/Additional Instructions: Healthy diet and activity. Use acetaminophen and ibuprofen to control pain. Take ciprofloxacin 250 twice a day for 5 days. Use hydrocodone 1 tablet every 8 hours as needed for severe pain. Follow-up with SOFTWARE BUSINESS ANALYST regarding ovarian cyst. Return to ER for new concerns or worsening symptoms. Coding Level of Care Code ED Service Crew Leader for Iram Briones
[2021-05-02] MEDS: sodium chloride 0.9% 1,000 ML 999 ML IV (21:58)
[2021-05-02] MEDS: ondansetron 2 mg/ML SDV 2 mL 4 MG IVP (21:59)
[2021-05-02 22:04] VITALS: BP 151/93; PULSE 89; O2SAT 100
[2021-05-02] MEDS: ketorolac 30 mg/mL INJ 15 MG IVP (22:28)
[2021-05-02] MEDS: ciprofloxacin 500 mg Tablet PO (23:42)
[2021-05-02 23:44] VITALS: BP 151/93; PULSE 89; O2SAT 100
--- NOTE | 2021-05-04 14:38 | DCPLANNER ---
talent solutions manager had message to schedule a follow up appointment for patient with [facility]. talent solutions manager called the [facility], spoke with López, gave clinic patients information. talent solutions manager was told that patients information would be printed and reviewed. Clinic will call patient with appointment information.
--- NOTE | 2021-05-16 12:43 | DCPLANNER ---
booking manager called [facility] to confirm that a follow up appointment had been scheduled for patient. booking manager spoke with López, was told that clinic was unable to reach patient to schedule a follow up appointment.
== END 2021-05-02 23:45 | disposition home or self-care (01) ==
PROVIDERS: Emergency Provider Nurse Practitioner Family; PCP Family Medicine
DX: N83.201 Unspecified ovarian cyst, right side (principal)
CPT/HCPCS: 74177; 80053; 81000; 81001; 83690; 84703; 85025; 87400; 87880; 96361; 96374; 96375; 99284; J1885; J2405; J7030; Q9967

== ENCOUNTER 2022-03-07 21:19 | Emergency (ER) | payer OTHER, SELFPAY ==
[2022-03-07 21:39] VITALS: BP 148/89; PULSE 136; RESP 18; TEMP 38.8; O2SAT 99; BMI 49.6
--- NOTE | 2022-03-07 22:18 | W.ED.FEVER ---
HPI - Fever General: Chief Complaint: Fever Stated Complaint: fever,throat pain Time Seen by Provider: 03/07/22 21:52 Source: patient Mode of arrival: ambulatory Limitations: no limitations History of Present Illness: 27-year-old female states over the last 2 days she been having a fever she has had a sore throat she also having some flank pain and dysuria she had a history of kidney infections in the past she is febrile here had some nausea denies any diarrhea she denies any worsening improving factors. Denies headache. Associated symptoms: Reports flank pain and nausea; Deny chest pain or headache(s) Review of Systems Const: Reports: fever(s), fatigue and malaise Eyes: Denies: blurry vision or eye discomfort ENMT: Denies: throat pain or dental pain Card: Denies: chest pain Resp: Denies: dyspnea GI: Reports: nausea : Reports: flank pain and difficulty voiding Musc: Denies: neck pain or back pain Skin/Breast: Denies: rash Neuro: Denies: headache(s) Psych: Denies: depression Tera/Lymph: Denies: easy bruising All/Imm: Denies: urticaria PFSH ED PFSH: Medical History (Updated 03/08/22 @ 00:20 by Torsten Myles MD) No pertinent past medical history Social History Smoking and tobacco status: never smoked Physical Exam Const: COMMON NORMALS: no acute distress, patient oriented x3 and healthy appearing HENMT: COMMON NORMALS: normocephalic and atraumatic HEAD & SCALP: normocephalic and atraumatic Eye: COMMON NORMALS: Equal, round and reactive pupils present and EOMs intact bilaterally PUPIL: Yes Equal, round and reactive pupils present Neck/C-Spine: COMMON NORMALS: full ROM and supple Chest: COMMONS NORMALS: normal inspection of the chest and normal palpation of entire chest wall Resp: COMMON NORMALS: normal respiratory effort, No retractions, No use of accessory muscles and clear to auscultation bilaterally AUSCULTATION: clear to auscultation bilaterally Cardio: COMMON NORMALS: regular rhythm and No murmurs present (Cardio) RATE: tachycardic RHYTHM: regular rhythm GI: COMMON NORMALS: Normal to inspection, nondistended, normoactive bowel sounds present, Soft to palpation, non-tender and no masses PALPATION: Yes Soft to palpation Extremity: COMMON NORMALS: normal to inspection and full ROM Neuro: COMMON NORMALS: patient oriented x3, moves all extremities and no focal motor deficits Psych: COMMON NORMALS: mental status grossly normal, Normal thought process present and cooperative THOUGHT PROCESS: Normal thought process present Skin: COMMON NORMALS: no rashes or lesions noted and no wounds GENERAL SKIN EXAM: no rashes or lesions noted Course Vital Signs: Vital signs: Vital Signs Temperature 101.8 F H 03/07/22 21:39 Pulse Rate 130 H 03/08/22 00:22 Respiratory Rate 15 03/08/22 00:22 Blood Pressure 132/71 03/08/22 00:22 Pulse Oximetry 98 03/08/22 00:22 Oxygen Delivery Me thod 03/07/22 21:39 MDM - Fever Medical Decision Making Patient presents here with a fever cough sore throat likely viral syndrome her work-up here is negative her temperature heart rate is improved she is stable for discharge she is to follow-up with her PCP and return if worsening she understands agrees to plan. Lab Data : 03/07/22 22:35 03/07/22 22:35 Radiology Impressions Abdomen/Pelvis CT 03/07/22 23:14 IMPRESSION: 1. Negative for acute inflammatory process in the abdomen or pelvis. 2. IUD in the uterine cavity. 3. Right deep pelvis probable punctate calcified phlebolith, similar to prior exam. Chest X-Ray 03/07/22 23:14 IMPRESSION: No acute findings. Laboratory Results WBC 10.5 10^3/uL (4.0-10.0) H 03/07/22 22:35 RBC 4.53 10^6/uL (4.1-5.3) 03/07/22 22:35 Hgb 12.9 g/dL (11.5-15.3) 03/07/22 22:35 Hct 39.4 % (37.0-47.0) 03/07/22 22:35 MCV 87.0 fl (81-99) 03/07/22 22:35 MCH 28.5 pg (28.0-34.0) 03/07/22 22:35 MCHC 32.7 g/dL (30.0-36.0) 03/07/22 22:35 RDW 13.1 % (12.1-15.1) 03/07/22 22:35 Plt Count 195 10^3/cmm (130-400) 03/07/22 22:35 MPV 11.1 fL (7.4-10.4) H 03/07/22 22:35 Neut % (Auto) 78.2 % 03/07/22 22:35 Lymph % (Auto) 14.0 % 03/07/22 22:35 [place] % (Auto) 5.9 % 03/07/22 22:35 Eos % (Auto) 1.0 % 03/07/22 22:35 Baso % (Auto) 0.3 % 03/07/22:35 Neut # (Auto) 8.19 10^3/uL (1.8-7.7) H 03/07/22 22:35 Lymph # (Auto) 1.5 10^3/uL (0.8-4.8) 03/07/22 22:35 [place] # (Auto) 0.6 10^3/uL (0.2-0.9) 03/07/22 22:35 Eos # (Auto) 0.1 10^3/uL (0.0-0.8) 03/07/22 22:35 Baso # (Auto) 0.0 10^3/uL (0.0-0.1) 03/07/22 22:35 Nucleated RBC % (auto) 0 % 03/07/22 22:35 Nucleated RBCs # 0.0 /100WBC 03/07/22 22:35 Sodium 135 mmol/L (136-145) L 03/07/22 22:35 Potassium 3.9 mmol/L (3.5-5.1) 03/07/22 22:35 Chloride 99 mmol/L (98-107) 03/07/22 22:35 Carbon Dioxide 24 mmol/L (22-29) 03/07/22 22:35 Anion Gap 15.9 (5-19) 03/07/22 22:35 BUN 10 mg/dL (6-20) 03/07/22 22:35 Creatinine 0.7 mg/dL (0.5-0.9) 03/07/22 22:35 GFR Calculation 98.9 mL/min (90-130) 03/07/22 22:35 Glucose 99 mg/dL (65-115) 03/07/22 22:35 Calculated Osmolality 279 mOsm/kg (285-295) L 03/07/22:35 Lactate 1.2 mmol/L (0.5-2.2) 03/07/22 22:35 Calcium 8.9 mg/dL (8.5-10.5) 03/07/22 22:35 Total Bilirubin 0.3 mg/dL (0.15-1.2) 03/07/22 22:35 AST 14 U/L (0-32) 03/07/22 22:35 ALT 14 U/L (0-33) 03/07/22 22:35 Alkaline Phosphatase 129 U/L (35-105) H 03/07/22 22:35 Total Protein 7.1 g/dL (6.6-8.7) 03/07/22: Albumin 4.0 g/dL (3.5-5.2) 03/07/22: Globulin 3.1 g/dL (1.3-4.6) 03/07/22:35 Lipase 30 U/L (13-60) 03/07/22 22:35 HCG, Qual Negative (Negative) 03/07/22 22:30 Urine Color Yellow (Yellow) 03/07/22: Urine Appearance Clear (CLEAR) 03/07/22 22: Urine pH 5 (5-7) 03/07/22 22:30 Ur Specific [place] 1.015 (1.005-1.030) 03/07/22 22:30 Urine Protein Neg (Negative) 03/07/22 22: Urine Glucose (UA) Norm (Normal) 03/07/22 22:30 Urine Ketones Negative (Negative) 03/07/22 22:30 Urine Blood 2+ (Negative) H 03/07/22 22:30 Urine Nitrate Negative (Negative) 03/07/22 22:30 Urine Bilirubin Neg (Negative) 03/07/22 22: Urine Urobilinogen Norm mg/dL (Negative) 03/07/22 22:30 Ur Leukocyte Esterase Negative (Negative) 03/07/22 22:30 Urine RBC 5-10 /hpf (0-2) H 03/07/22 22:30 Urine WBC 0-4 /hpf (0-5) H 03/07/22 22:30 Ur Squamous Epith Cells 5-10 /hpf (0-5) H 03/07/22 22:30 Amorphous Sediment Not Reportable 03/07/22 22:30 Urine Bacteria Trace /hpf (NONE) 03/07/22 22:30 Influenza Type A Ag negative (Negative) 03/07/22 22:00 Influenza Type B Ag negative (Negative) 03/07/22 22:00 SARS-CoV-2 Ag (Rapid) negative (Negative) 03/07/22 23:41 Group A Strep Rapid Negative (Negative) 03/07/22 22:00 Discharge Plan Discharge Patient Disposition: Home Clinical Impression: Viral infection, Fever Condition: Stable Prescriptions: New ondansetron 4 mg tablet,disintegrating 4 mg PO Q6H PRN (Reason: nausea and vomiting) Qty: 14 0RF No Action albuterol sulfate [Ventolin HFA] 90 mcg/actuation HFA aerosol inhaler 2 puff inhalation Q6H PRN (Reason: shortness of breath or wheezing) Qty: 8.5 0RF azithromycin 250 mg tablet See Rx Instructions PO .COMPLEX Qty: 6 0RF Rx Instructions: take 500 mg today (day 1), then 250 mg for 4 days (days 2-5) PO prednisone 20 mg tablet 40 mg PO DAILY 5 Days Qty: 10 0RF hydrocodone-acetaminophen 5-325 mg tablet 1 tab PO Q8H PRN (Reason: pain) Qty: 6 0RF Mirena 20 mcg/24 hours (5 yrs) 52 mg Intrauterine Device See Rx Instructions .ROUTE .COMPLEX Rx Instructions: mcg intrauterinely DIRECTED PT HAS THIS IN NOW. Discharge Orders: Discharge ED (Routine); Ordered 03/08/22 Ordered By: Torsten Myles Referrals: Rafael Molina MD [Primary Care Provider] - 1-3 days Discharge Diet: Advance as tolerated Discharge Activity: Resume usual activity Patient Instructions: Fever - Adult, Viral Syndrome (ED) Coding Level of Care Code ED Senior Marketing Coordinator for Chg Fwd Exam Comprehensive
[2022-03-07 22:37] LABS: Basophils % 0.3 %; Eosinophils # 0.1 10^3/uL (0.0-0.8); Hematocrit 39.4 % (37.0-47.0); Hemoglobin 12.9 g/dL (11.5-15.3); Lymphocytes # 1.5 10^3/uL (0.8-4.8); Mean Corpuscular HGB Conc 32.7 g/dL (30.0-36.0); Mean Corpuscular Hemoglobin 28.5 pg (28.0-34.0); Mean Platelet Volume 11.1 fL (7.4-10.4); Monocytes # 0.6 10^3/uL (0.2-0.9); Monocytes % 5.9 %; Neutrophils # 8.19 10^3/uL (1.8-7.7); Neutrophils % 78.2 %; Nucleated Red Blood Cells % 0 %; Platelet Count 195 10^3/cmm (130-400); Red Blood Count 4.53 10^6/uL (4.1-5.3); Red Cell Distribution Width 13.1 % (12.1-15.1); White Blood Count 10.5 10^3/uL (4.0-10.0)
[2022-03-07] MEDS: ondansetron 2 mg/ML SDV 2 mL 4 MG IVP (22:39)
[2022-03-07] MEDS: sodium chloride 0.9% 1,000 ML 999 ML IV (22:39)
[2022-03-07] MEDS: acetaminophen 325 mg Tablet 650 MG PO (22:44)
[2022-03-07 22:56] LABS: Add Urine Microscopic? YES; Bilirubin Urine Neg (Negative); Blood Urine 2+ (Negative); Glucose Urine UA Norm (Normal); Ketones Urine Negative (Negative); Leukocyte Esterase Urine Negative (Negative); Nitrate Urine Negative (Negative); Protein Urine Neg (Negative); Specific Gravity, Urine 1.015 (1.005-1.030); Urine Appearance Clear (CLEAR); Urine Color Yellow (Yellow); Urobilinogen Urine Norm (Negative); pH Urine 5 (5-7)
[2022-03-07 22:58] LABS: Add Urine Culture? No; Bacteria Urine TRACE /hpf; WBC Urine 0-4 /hpf (0-5)
[2022-03-07 22:58] LABS: Rapid Strep A Test Negative (Negative)
[2022-03-07 22:59] LABS: HCG Qualitative Urine. Negative (Negative)
[2022-03-07 23:12] LABS: Influenza A by IFA negative (Negative); Influenza B by IFA negative (Negative)
--- NOTE | 2022-03-07 23:14 | XRR_ITS ---
PROCEDURE INFORMATION: Exam: XR Chest Exam date and time: 03/07/2022 11:23 PM Age: 27 years old Clinical indication: Pain; Chest pressure; Additional info: Fever TECHNIQUE: Imaging protocol: Radiologic exam of the chest. Views: 1 view. COMPARISON: CR XR chest 1V [id number] 01/13/2019 8:53 AM FINDINGS: Lungs: Unremarkable. No consolidation. Pleural spaces: Unremarkable. No pleural effusion. No pneumothorax. Heart/Mediastinum: Unremarkable. No cardiomegaly. Bones/joints: Unremarkable. XR/XR chest 1V portable [id number] IMPRESSION: No acute findings.
--- NOTE | 2022-03-07 23:14 | CTR_ITS ---
PROCEDURE INFORMATION: Exam: CT Abdomen And Pelvis Without Contrast Exam date and time: 03/07/2022 11:29 PM Age: 27 years old Clinical indication: Abdominal pain; Flank; Right; Additional info: Flank pain TECHNIQUE: Imaging protocol: Computed tomography of the abdomen and pelvis without contrast. Radiation optimization: All CT scans at this facility use at least one of these dose optimization techniques: automated exposure control; mA and/or kV adjustment per patient size (includes targeted exams where dose is matched to clinical indication); or iterative reconstruction. COMPARISON: CT abdomen pelvis w con* [id number] 05/02/2021 9:50 PM RADIATION DOSE METRICS: Total DLP (mGy-cm): 1285.83 FINDINGS: Liver: Normal. No mass. Gallbladder and bile ducts: Normal. No calcified stones. No ductal dilation. Pancreas: Normal. No ductal dilation. Spleen: Normal. No splenomegaly. Adrenal glands: Normal. No mass. Kidneys and ureters: Normal. No hydronephrosis. Stomach and bowel: Unremarkable. No obstruction. No mucosal thickening. Appendix: No evidence of appendicitis. Intraperitoneal space: Unremarkable. No free air. No significant fluid collection. Vasculature: Right deep pelvis probable punctate calcified phlebolith, similar to prior exam. Lymph nodes: Unremarkable. No enlarged lymph nodes. Urinary bladder: Unremarkable as visualized. Reproductive: IUD in the uterine cavity. Bones/joints: Unremarkable. No acute fracture. Soft tissues: Unremarkable. CT/CT abdomen pelvis wo con [id number] IMPRESSION: 1. Negative for acute inflammatory process in the abdomen or pelvis. 2. IUD in the uterine cavity. 3. Right deep pelvis probable punctate calcified phlebolith, similar to prior exam.
[2022-03-07 23:15] LABS: Alanine Aminotransferase 14 U/L (0-33); Alkaline Phosphatase 129 U/L (35-105); Anion Gap 15.9 (5-19); Aspartate Amino Transferase 14 U/L (0-32); Blood Urea Nitrogen 10 mg/dL (6-20); Calcium 8.9 mg/dL (8.5-10.5); Carbon Dioxide 24 mmol/L (22-29); Chloride 99 mmol/L (98-107); Globulin 3.1 g/dL (1.3-4.6); Glomerular Filtration Rate 98.9 mL/min (90-130); Glucose 99 mg/dL (65-115); Lactate (Lactic Acid level) 1.2 mmol/L (0.5-2.2); Lipase 30 U/L (13-60); Osmolality Calculated 279 mOsm/kg (285-295); Potassium 3.9 mmol/L (3.5-5.1); Sodium 135 mmol/L (136-145); Total Bilirubin 0.3 mg/dL (0.15-1.2); Total Protein 7.1 g/dL (6.6-8.7)
[2022-03-07] MEDS: propranolol 20 mg Tablet PO (23:53)
[2022-03-08] LABS: SARS Covid-2 Antigen negative (Negative)
[2022-03-08 00:22] VITALS: BP 132/71; PULSE 130; RESP 15; O2SAT 98
== END 2022-03-08 00:34 | disposition home or self-care (01) ==
PROVIDERS: Emergency Provider Emergency Medicine; PCP Family Medicine
DX: B34.9 Viral infection, unspecified (principal); R50.9 Fever, unspecified
CPT/HCPCS: 71045; 74176; 80053; 81001; 81025; 83605; 83690; 85025; 87081; 87426; 87804; 87880; 96374; 99285; J2405; J7030

== ENCOUNTER 2022-09-27 18:57 | Emergency (ER) | payer OTHER, SELFPAY ==
[2022-09-27 19:05] VITALS: BP 145/96; PULSE 78; RESP 18; TEMP 36.7; O2SAT 98
--- NOTE | 2022-09-27 19:24 | XRR_ITS ---
PROCEDURE INFORMATION: Exam: XR Right Tibia and Fibula Exam date and time: 09/27/2022 7:27 PM Age: 27 years old Clinical indication: Pain; Lower leg; Right; Additional info: Fall injury TECHNIQUE: Imaging protocol: Radiologic exam of the right tibia and fibula. Views: 2 views. COMPARISON: No relevant prior studies available. FINDINGS: Bones/joints: Normal. Soft tissues: Normal. XR/XR tibia fibula RT 2V [id number] IMPRESSION: No acute findings.
--- NOTE | 2022-09-27 19:26 | XRR_ITS ---
PROCEDURE INFORMATION: Exam: XR Right Knee Exam date and time: 09/27/2022 7:39 PM Age: 27 years old Clinical indication: Pain; Knee; Right; Additional info: Fall injury TECHNIQUE: Imaging protocol: Radiologic exam of the right knee. Views: 3 views. COMPARISON: CR (LOW EXM, ) 09/27/2022 7:27 PM FINDINGS: Bones/joints: Normal. Soft tissues: Normal. XR/XR knee RT 3V* [id number] IMPRESSION: No acute findings.
--- NOTE | 2022-09-27 20:00 | XRR_ITS ---
PROCEDURE INFORMATION: Exam: XR Lumbosacral Spine Exam date and time: 09/27/2022 8:04 PM Age: 27 years old Clinical indication: Low back pain; Additional info: Fall with low back pain TECHNIQUE: Imaging protocol: Radiologic exam of the lumbosacral spine. Views: 2 or 3 views. COMPARISON: CT abdomen pelvis wo con [id number] 03/07/2022 11:29 PM FINDINGS: Limitations: Study is limited due to patient body habitus. Bones/joints: There is very mild scoliosis concave to the right. No fracture is identified.. Intervertebral disc spaces are preserved. Soft tissues: Unremarkable. XR/XR lumbar spine 2-3V* [id number] IMPRESSION: No acute finding
--- NOTE | 2022-09-27 20:04 | ED_ITS ---
HPI - Fall General: Chief Complaint: Fall Stated Complaint: Rt Ankle Injury Time Seen by Provider: 09/27/22 19:23 History of Present Illness: Patient is a 27-year-old female comes to the ED with right knee pain and low back pain after fall. Fall occurred just prior to arrival. Patient says she was carrying her 3-year-old child and she walked into her garage which has a slick finish over the concrete. Her shoes were wet and it caused her to slip. She was falling backwards and her right knee folded back underneath her body and she fell back on her lower back. Denies any head trauma or loss of consciousness. Since fall she has been having right knee pain. She rates the knee pain a 7 out of 10. she is unable to do any weightbearing on right leg since fall. Any flexion of right knee causes worsening pain. She says her knee feels better if it straightened out. Weightbearing causes shooting pain up and down the leg. Lower back pain is rated as moderate and located in the right lumbar region. Patient has not had anything for pain before coming to the ED Associated symptoms-after fall: Denies abdominal pain, chest pain, headache(s), hematuria or neck pain Review of Systems Const: Denies: fever(s), chills or fatigue Eyes: Denies: change in vision or eye discomfort ENMT: Denies: throat pain, odynophagia, nasal discharge or nasal congestion Card: Denies: chest pain, palpitations, edema, swelling of feet/ankles, dyspnea on exertion or orthopnea Resp: Denies: dyspnea, productive cough or non-productive cough GI: Denies: abdominal pain, nausea, vomiting, diarrhea, constipation or hematochezia : Denies: flank pain, dysuria or hematuria Musc: Reports: back pain (Lower back), extremity pain (Right knee pain) and limited range of motion (Right knee); Denies: neck pain or extremity swelling Skin/Breast: Denies: rash or new lesions Neuro: Denies: headache(s), numbness in extremities or weakness in extremities [facility] ED PFSH: Medical History (Updated 09/28/22 @ 00:50 by SEGUNDO Delgado) No pertinent family history No pertinent past medical history Social History Smoking and tobacco status: never smoked Physical Exam Const: COMMON NORMALS: patient oriented x3 and alert GENERAL APPEARANCE: cooperative NUTRITIONAL APPEARANCE: obese HENMT: COMMON NORMALS: normocephalic HEAD & SCALP: normocephalic MOUTH: Normal oral and palatal mucosa present THROAT: posterior oropharynx normal and uvula midline Neck/C-Spine: COMMON NORMALS: supple GENERAL: Yes normal visual inspection Resp: COMMON NORMALS: normal respiratory effort, No retractions, No use of accessory muscles and clear to auscultation bilaterally AUSCULTATION: clear to auscultation bilaterally Cardio: COMMON NORMALS: regular rate, regular rhythm, S1 normal heart sound present, S2 normal heart sound present, No gallops present (Cardio), No clicks present (Cardio), No murmurs present (Cardio) and Peripheral pulses 2+ throughout RATE: regular rate RHYTHM: regular rhythm HEART SOUNDS: S1 normal heart sound present and S2 normal heart sound present PERIPHERAL PULSES: Peripheral pulses 2+ throughout GI: COMMON NORMALS: Normal to inspection, nondistended, normoactive bowel sounds present, Soft to palpation, non-tender and no masses PALPATION: Yes Soft to palpation : COMMON NORMALS: Yes no CVA tenderness BLADDER/KIDNEY EXAM: Yes no CVA tenderness Back/Pelvis: COMMON NORMALS: no CVA tenderness LUMBAR SPINE/LOWER BACK: Yes lumbar ROM normal, Yes lumbar spinal tenderness Lumbar spinal tenderness location: L3, L4 and L5 and Yes paraspinal muscle tenderness Lumbar paraspinal muscle tenderness: right Extremity: NARRATIVE EXTREMITY EXAM: Right knee?no visible deformity seen. Mild swelling noted. No ecchymosis. Full range of motion but endorses pain with flexion. Tenderness over patella and in anterior and inferior aspect of knee. Neurovascular intact distally. Neuro: COMMON NORMALS: patient oriented x3 SENSORIUM/ORIENTATION: Yes alert GAIT: Yes Normal gait present Skin: GENERAL SKIN EXAM: dry skin Course Vital Signs: Vital signs: Vital Signs Temperature 98.1 F 09/27/22 19:05 Pulse Rate 78 09/27/22 19:05 Respiratory Rate 18 09/27/22 19:05 Blood Pressure 145/96 09/27/22 19:05 Pulse Oximetry 98 09/27/22 19:05 Oxygen Delivery Me thod Room Air 09/27/22 19:05 MDM - Fall Medical Decision Making Patient is a 27-year-old female who comes to the ED with right knee and lower back pain after fall. Fall occurred just prior to arrival and she slipped on concrete floor and fell backwards. Denies any head trauma or loss of consciousness but says that her right leg tucked under her body when she went down and she hit her lumbar spine on concrete. Vitals are stable. She does have some right lumbar paraspinal muscle tenderness and right knee exam shows no visible deformity seen. Mild swelling noted. No ecchymosis. Full range of motion but endorses pain with flexion. Tenderness over patella and in anterior and inferior aspect of knee. Neurovascular intact distally. X-rays of knee and lumbar spine showed no acute fractures or findings. Given my concern for potential soft tissue or tendon injury and knee patient was given crutches and I placed order with case management for patient be referred to Ortho for follow-up on knee injury. She was stable for discharge home and diagnosed with right knee injury and lumbar back pain. She was sent home with a prescription for ibuprofen and muscle relaxer. Return to ED precautions given. Patient understood and agreed with plan. Lab Data Radiology Impressions Tibia/Fibula X-Ray 09/27/22 19:24 IMPRESSION: No acute findings. Knee X-Ray 09/27/22 19:26 IMPRESSION: No acute findings. Lumbar Spine X-Ray 09/27/22 20:00 IMPRESSION: No acute finding Discharge Plan Discharge Patient Disposition: Home Clinical Impression: Lumbar back pain Injury of knee, right Qualifiers: Encounter type: initial encounter Qualified Code(s): S89.91XA - Unspecified injury of right lower leg, initial encounter Condition: Stable Prescriptions: New ibuprofen 800 mg tablet 800 mg PO Q8H PRN (Reason: pain) Qty: 30 0RF methocarbamol 750 mg tablet 750 mg PO Q8H PRN (Reason: Muscle spasms and pain) Qty: 20 0RF No Action albuterol sulfate [Ventolin HFA] 90 mcg/actuation HFA aerosol inhaler 2 puff inhalation Q6H PRN (Reason: shortness of breath or wheezing) Qty: 8.5 0RF propranolol 20 mg tablet 20 mg PO BID ibuprofen 600 mg tablet 600 mg PO Q8H PRN (Reason: pain) Qty: 30 0RF clindamycin HCl 300 mg capsule 600 mg PO Q6H 7 Days Qty: 56 0RF Mirena 20 mcg/24 hours (5 yrs) 52 mg Intrauterine Device See Rx Instructions .ROUTE .COMPLEX Rx Instructions: mcg intrauterinely DIRECTED PT HAS THIS IN NOW. ondansetron 4 mg tablet,disintegrating 4 mg PO Q6H PRN (Reason: nausea and vomiting) Qty: 14 0RF Discharge Orders: Discharge ED (Routine); Ordered 09/27/22 Ordered By: Marty Odonnell Referrals: Rafael Molina MD [Primary Care Provider] - Discharge Diet: Regular Discharge Activity: Use walker/crutches as instructed Patient Instructions: Acute Low Back Pain (ED), Knee Pain (ED) Activity Restrictions/Additional Instructions: Follow-up with medical provider as directed. Case management should be contacte d in the next several days to set up an appointment with Ortho for follow-up on knee injury. Use crutches and limit weightbearing until cleared by Ortho. You can rest, ice and elevate leg and apply cold pack on back as well. To lower back stretches daily. Take medications as prescribed. Return to the ER or your medical provider if condition worsens. Please read and understand discharge instructions. Thank you for choosing [facility] for your healthcare needs today. Please realize this is an emergency room and that we are providing you with a medical screening exam and this may not be complete and all inclusive of all the testing and or work up that you may need to determine your ailment or severity of your illness. It is very important that you follow up as instructed or that you return to the Emergency Department should you have concerns or if your condition changes or worsens in any way. 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
[2022-09-27] MEDS: HYDROcodone-acetaminophen 5-325 mg Tablet 1 TAB PO (20:28)
[2022-09-27] MEDS: orphenadrine 30 mg/mL Inj 2 mL 60 MG IM (21:08)
[2022-09-27] MEDS: ondansetron 4 MG Tablet PO (21:09)
--- NOTE | 2022-09-28 11:57 | PC.NURSE ---
Addendum entered by Christine Keyes 10/15/22 11:26: Patient had a follow up appointment at ortho - patient did attend appointment. Addendum entered by Christine Keyes 10/02/22 13:37: Patient has a follow up appointment scheduled for Saturday, October 08, 2022 at 8:[address] Stapleton at ortho. Original Note: Patient seen in the ED on 09/28/22. Patient referred to ortho for right knee injury. [facility] sent message to ortho to call patient with an appt.
== END 2022-09-27 21:27 | disposition home or self-care (01) ==
PROVIDERS: Emergency Provider Physician Assistant; PCP Family Medicine
DX: S89.91XA Unspecified injury of right lower leg, initial encounter (principal); M54.50 Low back pain, unspecified; W01.0XXA Fall on same level from slipping, tripping and stumbling without subsequent striking against object, initial encounter
CPT/HCPCS: 72100; 73562; 73590; 96372; 99284; E0114; J2360; Q0162

== ENCOUNTER → 2022-10-08 07:59 | Outpatient (BNVA) | payer OTHER, SELFPAY | PROVIDERS: PCP Family Medicine; Referring Provider Physician Assistant; Visit Provider Specialist | DX: S89.91XA Unspecified injury of right lower leg, initial encounter (principal); W01.0XXA Fall on same level from slipping, tripping and stumbling without subsequent striking against object, initial encounter | CPT/HCPCS: 73560; 73565; 73590 ==

== ENCOUNTER 2022-10-24 15:47 | Outpatient (CLI) | payer OTHER, SELFPAY ==
--- NOTE | 2022-10-24 16:00 | MR_ITS ---
WS: [id number] MRI RIGHT KNEE HISTORY: right knee injury COMPARISON: Knee radiographs 10/08/2022 Anterior cruciate ligament: Intact. Posterior cruciate ligament: Intact. Medial collateral ligament: Intact. Posterior lateral corner structures: Intact. Medial menisci: Intact. Normal signal, size and shape. Lateral meniscus: Abnormal signal with blunting of the posterior horn free edge on the sagittal seque nce. This is only seen on one image. On the coronal image there is vertical increased T2 signal sugge sting a radial tear at a similar location. Extensor mechanism: Distal quadriceps tendon and patellar tendons are intact. Fluid and soft tissue: No joint effusion. No Pfeiffer's cyst. Osseous and articular structures: Patellofemoral compartment: Normal. Medial compartment: Normal. Lateral compartment: There is a very tiny area of increased T2 signal in the central compartment invo lving the cartilage. This may involve the free edge of the posterior horn of the lateral meniscus. Th ere is slight blunting. Suspect radial tear with very small focal chondromalacia. MR/MR knee RT wo con* [id number] IMPRESSION: 1. Very minimal blunting free edge posterior horn lateral meniscus with corres ponding findings on the coronal plane suggesting a radial tear. 2. Focal very minimal chondromalacia involving the cartilage in the lateral breanne int space associated with the suspicious radial tear. 3. No joint effusion.
== END 2022-10-24 15:48 | disposition home or self-care (01) ==
PROVIDERS: PCP Family Medicine; Visit Provider Specialist
DX: M25.561 Pain in right knee (principal); M94.261 Chondromalacia, right knee
CPT/HCPCS: 73721

== ENCOUNTER 2022-12-19 13:14 | Emergency (ER) | payer OTHER, SELFPAY ==
[2022-12-19] VITALS (7 sets, daily range): BP systolic 132–153; BP diastolic 82–105; PULSE 68–91; RESP 17; TEMP 36.7; O2SAT 99–100
--- NOTE | 2022-12-19 14:46 | CTR_ITS ---
PROCEDURE INFORMATION: Exam: CT Abdomen And Pelvis With Contrast Exam date and time: 12/19/2022 4:26 PM Age: 27 years old Clinical indication: Abdominal pain; Localized; Left lower quadrant (llq) TECHNIQUE: Imaging protocol: Computed tomography of the abdomen and pelvis with contrast. Radiation optimization: All CT scans at this facility use at least one of these dose optimization techniques: automated exposure control; mA and/or kV adjustment per patient size (includes targeted exams where dose is matched to clinical indication); or iterative reconstruction. Contrast material: OMNI 350; Contrast volume: 100 ml; Contrast route: INTRAVENOUS (IV); REPORTING DATA: Count of CT and Cardiac NM exams in prior 12 months: This patient has received [address] and 0 known cardiac nuclear medicine studies in the 12 months prior to the current study. COMPARISON: CT abdomen pelvis wo con [id number] 03/07/2022 11:29 PM RADIATION DOSE METRICS: Total DLP (mGy-cm): 1316.13 FINDINGS: Liver: Normal. No mass. Gallbladder and bile ducts: Normal. No calcified stones. No ductal dilation. Pancreas: Normal. No ductal dilation. Spleen: Normal. No splenomegaly. Adrenal glands: Normal. No mass. Kidneys and ureters: Normal. No hydronephrosis. Stomach and bowel: Unremarkable. No obstruction. No mucosal thickening. Appendix: No evidence of appendicitis. Intraperitoneal space: Unremarkable. No free air. No significant fluid collection. Vasculature: Unremarkable. No abdominal aortic aneurysm. Lymph nodes: Unremarkable. No enlarged lymph nodes. Urinary bladder: Unremarkable as visualized. Reproductive: IUD noted in expected positioning. 3.3 cm left ovarian cyst noted. Bones/joints: No acute fracture. Soft tissues: Unremarkable. CT/CT abdomen pelvis w con* [id number] IMPRESSION: No acute findings. 3.3 cm left ovarian cyst noted, most likely a dominant follicular cyst.
--- NOTE | 2022-12-19 14:46 | US_ITS ---
WS: [id number] US transvaginal [id number] HISTORY: eval for torsion right COMPARISON: 08/17/2021 Uterus: 7.3 cm x 4.0 cm x 3.7 cm. Normal size retroverted uterus. No fibroid or mass identified. Endometrium: 1.0 cm. IUD is present along the endometrium. The position of the uterus is difficult to determine the exact location. Cannot exclude embedded IUD on imaging submitted but the course appear s appropriate. There is a small amount of thickening involving the distal fundal portion of the endom etrium but no mass Right ovary: 2.8 cm x 2.4 cm x 1.5 cm. Normal size ovary with normal vascularity. Dominant corpus lut eal cyst measuring 2.0 x 1.5 x 2.3 cm. There are adjacent small peripheral follicles. The visualized normal ovarian tissue contains normal vascularity. Left ovary: 4.4 cm x 3.7 cm x 3.4 cm. Hemorrhagic cyst associated with the LEFT ovary with lacy thin fibrin strands. Hemorrhagic cyst measures 3.3 x 2.9 x 2.5 cm. Normal vascularity to the ovary. Trace free fluid US/US transvaginal [id number] IMPRESSION: 1. No ovarian torsion identified. 2. Hemorrhagic cyst LEFT ovary measures 3.3 x 2.9 x 2.5 cm. 3. Corpus luteal cyst RIGHT ovary. 4. IUD noted in the endometrial canal.
[2022-12-19] MEDS: ondansetron 2 mg/ML SDV 2 mL 4 MG IVP (14:52)
[2022-12-19] MEDS: sodium chloride 0.9% 500 ML IV (14:52)
[2022-12-19] MEDS: ketorolac 30 mg/mL INJ IVP (14:52)
[2022-12-19 14:59] LABS: Basophils # 0.1 10^3/uL (0.0-0.1); Basophils % 0.5 %; Eosinophils # 0.5 10^3/uL (0.0-0.8); Eosinophils % 3.9 %; Hematocrit 41.5 % (37.0-47.0); Hemoglobin 13.5 g/dL (11.5-15.3); Lymphocytes # 3.7 10^3/uL (0.8-4.8); Lymphocytes % 30.6 %; Mean Corpuscular HGB Conc 32.5 g/dL (30.0-36.0); Mean Corpuscular Hemoglobin 28.3 pg (28.0-34.0); Mean Platelet Volume 11.3 fL (7.4-10.4); Monocytes # 0.6 10^3/uL (0.2-0.9); Monocytes % 5.3 %; Neutrophils # 7.11 10^3/uL (1.8-7.7); Neutrophils % 59.3 %; Nucleated Red Blood Cells % 0 %; Platelet Count 244 10^3/cmm (130-400); Red Blood Count 4.77 10^6/uL (4.1-5.3); Red Cell Distribution Width 13.3 % (12.1-15.1)
[2022-12-19 15:05] LABS: Add Urine Microscopic? YES; Bilirubin Urine Neg (Negative); Blood Urine 3+ (Negative); Glucose Urine UA Norm (Normal); Ketones Urine Negative (Negative); Leukocyte Esterase Urine Negative (Negative); Nitrate Urine Negative (Negative); Protein Urine Neg (Negative); Specific Gravity, Urine 1.015 (1.005-1.030); Urine Appearance Clear (CLEAR); Urine Color Yellow (Yellow); Urobilinogen Urine Norm (Negative); pH Urine 6 (5-7)
[2022-12-19 15:06] LABS: Add Urine Culture? Yes; Bacteria Urine TRACE /hpf; RBC Urine 40-50 /hpf (0-2); Squamous Epithelial Cell Urine 0-4 /hpf (0-5); WBC Urine 0-4 /hpf (0-5)
[2022-12-19 15:07] LABS: Alanine Aminotransferase 12 U/L (0-33); Albumin Level 4.1 g/dL (3.5-5.2); Alkaline Phosphatase 121 U/L (35-105); Anion Gap 15.1 (5-19); Aspartate Amino Transferase 13 U/L (0-32); Blood Urea Nitrogen 15 mg/dL (6-20); Calcium 8.9 mg/dL (8.5-10.5); Carbon Dioxide 23 mmol/L (22-29); Chloride 102 mmol/L (98-107); Globulin 3.1 g/dL (1.3-4.6); Glomerular Filtration Rate 98.9 mL/min (90-130); Glucose 97 mg/dL (65-115); Osmolality Calculated 283 mOsm/kg (285-295); Potassium 4.1 mmol/L (3.5-5.1); Sodium 136 mmol/L (136-145); Total Bilirubin 0.3 mg/dL (0.15-1.2); Total Protein 7.2 g/dL (6.6-8.7)
--- NOTE | 2022-12-19 15:28 | ED_ITS ---
HPI - Abdominal Pain General: Chief Complaint: Abdominal Pain Stated Complaint: lower abd pain Time Seen by Provider: 12/19/22 14:09 History of Present Illness: 27-year-old female with a known history of polycystic ovarian syndrome presents to the emergency department from her doctor's office chief complaint of profound right-sided abdominal pain right lower quadrant has been progressive getting worse over the last day or so which she was sent in to further rule out acute appendicitis the patient has a known history of partial ovarian torsion as well as a past she reports no blood in her urine reports intermittent abdominal pain mostly located to the right lower abdomen with no radiation she reports nothing seems to improve or make it worse patient believes she may have had a ruptured ovarian cyst however presents due to her doctor's wishes for further assessment and management she does report that with the pain she does get quite nauseous and starts vomiting she does not endorse any constipation or diarrhea reporting no recent fevers or chills. Associated Symptoms: Reports nausea and vomiting; Denies chills, constipation, diarrhea and fever(s) Review of Systems General: Reports: 10 or more systems reviewed and unremarkable except in HPI and below Const: Denies: fever(s), chills, fatigue or malaise Eyes: Denies: change in vision or blurry vision Card: Denies: chest pain or palpitations Resp: Denies: dyspnea or productive cough GI: Reports: abdominal pain, nausea and vomiting; Denies: diarrhea or constipation : Denies: flank pain Musc: Denies: extremity pain or extremity swelling Skin/Breast: Denies: rash or pruritus Neuro: Denies: headache(s) Psych: Denies: anxiety or depression Tera/Lymph: Denies: easy bleeding All/Imm: Denies: urticaria, throat swelling or facial swelling PFS ED PFSH: Medical History No pertinent family history No pertinent past medical history Social History Smoking and tobacco status: never smoked Physical Exam Const: COMMON NORMALS: no acute distress, patient oriented x3 and healthy appearing HENMT: COMMON NORMALS: normocephalic and atraumatic HEAD & SCALP: normocephalic and atraumatic Eye: COMMON NORMALS: Equal, round and reactive pupils present and EOMs intact bilaterally PUPIL: Yes Equal, round and reactive pupils present Neck/C-Spine: COMMON NORMALS: full ROM, supple and no JVD Lymph: LYMPHATIC: no lymphadenopathy noted Chest: COMMONS NORMALS: normal inspection of the chest and normal palpation of entire chest wall Resp: COMMON NORMALS: normal respiratory effort, No retractions and clear to auscultation bilaterally EFFORT & INSPECTION: Yes able to speak in complete sentences and Yes symmetric chest movement AUSCULTATION: clear to auscultation bilaterally Cardio: COMMON NORMALS: no JVD, regular rate and regular rhythm RATE: regular rate RHYTHM: regular rhythm GI: COMMON NORMALS: Soft to palpation; negative for Normal to inspection, nondistended, normoactive bowel sounds present and negative for non-tender (Significant tenderness appreciated in the right lower quadrant to light noreen) INSPECTION: Yes normal to inspection PALPATION: Yes Soft to palpation : COMMON NORMALS: Yes no CVA tenderness BLADDER/KIDNEY EXAM: Yes no CVA tenderness Back/Pelvis: COMMON NORMALS: no CVA tenderness Extremity: COMMON NORMALS: normal to inspection and full ROM Neuro: COMMON NORMALS: patient oriented x3, CN's II-XII intact bilaterally, moves all extremities and no focal motor deficits Psych: COMMON NORMALS: mental status grossly normal, Normal thought process present, cooperative and normal affect THOUGHT PROCESS: Normal thought process present Skin: COMMON NORMALS: no rashes or lesions noted GENERAL SKIN EXAM: no rashes or lesions noted Course Vital Signs: Vital signs: Vital Signs Temperature 98.1 F 12/19/22 13:43 Pulse Rate 72 12/19/22 18:09 Respiratory Rate 17 12/19/22 13:43 Blood Pressure 138/105 12/19/22 18:09 Pulse Oximetry 99 12/19/22 18:09 Oxygen Delivery Me thod Room Air 12/19/22 14:30 MDM - Abdominal Pain Medical Decision Making Due to patient's symptoms condition will be established lab work and imaging will be obtained medication will be provided for her pain control we will continue to follow underlying concerns of ruptured ovarian cyst versus torsion versus acute appendicitis is prominent patient CT imaging came back reassuring patient was found blood in her urine no ovarian cyst on the right side there was a large on the left but no ovarian torsion and no acute appendicitis due to the blood in the urine I am concerned about a small kidney stone I will be treating her accordingly with medications for such did advise she need to further follow- up with her primary care doctor in 2 to 3 days for further assessment management if her pain continues as we will be unable to get a CT abdomen pelvis without IV contrast due to the contrast load we were provided to her as she may need a renal stone CT patient's pain is well controlled at this time patient be subcu discharged on a trial period of pain and nausea medications in which she was advised to return the interim if any of her symptoms persist or worsen. Lab Data 12/19/22 14:27 12/19/22 14:27 Labs/Radiology: Radiology Impressions Abdomen/Pelvis CT 12/19/22 14:46 IMPRESSION: No acute findings. 3.3 cm left ovarian cyst noted, most likely a dominant follicular cyst. Transvaginal US 12/19/22 14:46 IMPRESSION: 1. No ovarian torsion identified. 2. Hemorrhagic cyst LEFT ovary measures 3.3 x 2.9 x 2.5 cm. 3. Corpus luteal cyst RIGHT ovary. 4. IUD noted in the endometrial canal. Laboratory Results WBC 12.0 10^3/uL (4.0-10.0) H 12/19/22 14:27 RBC 4.77 10^6/uL (4.1-5.3) 12/19/22 14:27 Hgb 13.5 g/dL (11.5-15.3) 12/19/22 14:27 Hct 41.5 % (37.0-47.0) 12/19/22 14:27 MCV 87.0 fl (81-99) 12/19/22 14:27 MCH 28.3 pg (28.0-34.0) 12/19/22 14:27 MCHC 32.5 g/dL (30.0-36.0) 12/19/22 14:27 RDW 13.3 % (12.1-15.1) 12/19/22 14:27 Plt Count 244 10^3/cmm (130-400) 12/19/22 14:27 MPV 11.3 fL (7.4-10.4) H 12/19/22 14:27 Neut % (Auto) 59.3 % 12/19/22 14:27 Lymph % (Auto) 30.6 % 12/19/22 14:27 [place] % (Auto) 5.3 % 12/19/22 14:27 Eos % (Auto) 3.9 % 12/19/22 14:27 Baso % (Auto) 0.5 % 12/19/22 14:27 Neut # (Auto) 7.11 10^3/uL (1.8-7.7) 12/19/22 14:27 Lymph # (Auto) 3.7 10^3/uL (0.8-4.8) 12/19/22 14:27 [place] # (Auto) 0.6 10^3/uL (0.2-0.9) 12/19/22 14:27 Eos # (Auto) 0.5 10^3/uL (0.0-0.8) 12/19/22 14:27 Baso # (Auto) 0.1 10^3/uL (0.0-0.1) 12/19/22 14:27 Nucleated RBC % (auto) 0 % 12/19/22 14: Nucleated RBCs # 0.0 /100WBC 12/19/22 14:27 Sodium 136 mmol/L (136-145) 12/19/22 14:27 Potassium 4.1 mmol/L (3.5-5.1) 12/19/22 14:27 Chloride 102 mmol/L (98-107) 12/19/22 14:27 Carbon Dioxide 23 mmol/L (22-29) 12/19/22 14:27 Anion Gap 15.1 (5-19) 12/19/22 14:27 BUN 15 mg/dL (6-20) 12/19/22 14:27 Creatinine 0.7 mg/dL (0.5-0.9) 12/19/22 14:27 GFR Calculation 98.9 mL/min (90-130) 12/19/22 14:27 Glucose 97 mg/dL (65-115) 12/19/22 14:27 Calculated Osmolality 283 mOsm/kg (285-295) L 12/19/22 14:27 Calcium 8.9 mg/dL (8.5-10.5) 12/19/22 14:27 Total Bilirubin 0.3 mg/dL (0.15-1.2) 12/19/22 14:27 AST 13 U/L (0-32) 12/19/22 14:27 ALT 12 U/L (0-33) 12/19/22 14:27 Alkaline Phosphatase 121 U/L (35-105) H 12/19/22 14:27 C-Reactive Protein 25.0 mg/L (0.0-4.9) H 12/19/22 14:27 Total Protein 7.2 g/dL (6.6-8.7) 12/19/22 14:27 Albumin 4.1 g/dL (3.5-5.2) 12/19/22 14:27 Globulin 3.1 g/dL (1.3-4.6) 12/19/22 14:27 HCG, Qual Negative (Negative) 12/19/22 14:27 Urine Color Yellow (Yellow) 12/19/22 14:27 Urine Appearance Clear (CLEAR) 12/19/22 14:27 Urine pH 6 (5-7) 12/19/22 14:27 Ur Specific [place] 1.015 (1.005-1.030) 12/19/22 14:27 Urine Protein Neg (Negative) 12/19/22 14:27 Urine Glucose (UA) Norm (Normal) 12/19/22 14:27 Urine Ketones Negative (Negative) 12/19/22 14:27 Urine Blood 3+ (Negative) H 12/19/22 14:27 Urine Nitrate Negative (Negative) 12/19/22 14:27 Urine Bilirubin Neg (Negative) 12/19/22 14:27 Urine Urobilinogen Norm mg/dL (Negative) 12/19/22 14:27 Ur Leukocyte Esterase Negative (Negative) 12/19/22 14:27 Urine RBC 40-50 /hpf (0-2) H 12/19/22 14:27 Urine WBC 0-4 /hpf (0-5) H 12/19/22 14:27 Ur Squamous Epith Cells 0-4 /hpf (0-5) H 12/19/22 14:27 Amorphous Sediment Not Reportable 12/19/22 14:27 Urine Bacteria Trace /hpf (NONE) 12/19/22 14:27 Discharge Plan Discharge Patient Disposition: Home Clinical Impression: Right-sided abdominal pain of unknown cause, Hematuria, H/O polycystic ovarian syndrome Condition: Stable Prescriptions: New ketorolac 10 mg tablet 10 mg PO Q6H PRN (Reason: pain) 5 Days Qty: 20 0RF hydrocodone-acetaminophen 5-325 mg tablet 1 tab PO Q8H PRN (Reason: pain) Qty: 10 0RF ondansetron 4 mg tablet,disintegrating 4 mg PO Q8H PRN (Reason: nausea and vomiting) Qty: 20 0RF No Action albuterol sulfate [Ventolin HFA] 90 mcg/actuation HFA aerosol inhaler 2 puff inhalation Q6H PRN (Reason: shortness of breath or wheezing) Qty: 8.5 0RF propranolol 20 mg tablet 20 mg PO BID ibuprofen 600 mg tablet 600 mg PO Q8H PRN (Reason: pain) Qty: 30 0RF meloxicam 15 mg tablet 15 mg PO DAILY Qty: 30 0RF Mirena 20 mcg/24 hours (5 yrs) 52 mg Intrauterine Device See Rx Instructions .ROUTE .COMPLEX Rx Instructions: mcg intrauterinely DIRECTED PT HAS THIS IN NOW. ondansetron 4 mg tablet,disintegrating 4 mg PO Q6H PRN (Reason: nausea and vomiting) Qty: 14 0RF ibuprofen 800 mg tablet 800 mg PO Q8H PRN (Reason: pain) Qty: 30 0RF methocarbamol 750 mg tablet 750 mg PO Q8H PRN (Reason: Muscle spasms and pain) Qty: 20 0RF Discharge Orders: Discharge ED (Routine); Ordered 12/19/22 Ordered By: Slava Calderon Referrals: Rafael Molina MD [Primary Care Provider] - 4-7 days Discharge Diet: Advance as tolerated Discharge Activity: Increase activity as tolerated Patient Instructions: Kidney Stones (ED), Abdominal Pain (ED), Opioid Safety, Pain Management Activity Restrictions/Additional Instructions: Please further follow-up with your primary care doctor in 3 to 5 days please take medications as prescribed please return the interim if any of your symptoms persist or worse Stand Alone Forms: Work/School Release Coding 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
[2022-12-19 15:42] LABS: HCG, Serum Qual Negative (Negative)
[2022-12-19] MEDS: fentaNYL 50 mcg/mL INJ 2mL 12.5 MCG IVP (16:47)
== END 2022-12-19 18:32 | disposition home or self-care (01) ==
PROVIDERS: Emergency Provider Emergency Medicine; PCP Family Medicine
DX: R10.31 Right lower quadrant pain (principal); R31.9 Hematuria, unspecified; E28.2 Polycystic ovarian syndrome; Z79.899 Other long term (current) drug therapy
CPT/HCPCS: 74177; 76830; 80053; 81001; 84703; 85025; 86140; 87086; 96361; 96374; 96375; 99285; J1885; J2405; J3010; J7040; Q9967

== ENCOUNTER → 2023-02-13 11:00 | Outpatient (BNVA) | payer SELFPAY | PROVIDERS: PCP Family Medicine; Visit Provider Nurse Practitioner Family | DX: S69.92XA Unspecified injury of left wrist, hand and finger(s), initial encounter (principal); W18.2XXA Fall in (into) shower or empty bathtub, initial encounter | CPT/HCPCS: 73110 ==

== ENCOUNTER → 2023-03-18 16:05 | Outpatient (BNVA) | payer BC, SELFPAY | PROVIDERS: PCP Family Medicine; Visit Provider Family Medicine | DX: J02.9 Acute pharyngitis, unspecified (principal); R50.9 Fever, unspecified; J06.9 Acute upper respiratory infection, unspecified; B96.89 Other specified bacterial agents as the cause of diseases classified elsewhere | CPT/HCPCS: 87426; 87880 ==

== ENCOUNTER 2023-05-22 08:08 | Emergency (ER) | payer BC, SELFPAY ==
[2023-05-22 08:15] VITALS: BP 166/101; PULSE 99; TEMP 36.6; O2SAT 97; BMI 53.1
--- NOTE | 2023-05-22 08:25 | XR_ITS ---
WS: [id number] Portable AP upright chest, 05/22/2023 Clinical Data: dyspnea/cough Comparison: Portable chest, 03/07/2022 Findings: No nodules, masses or effusions are seen. The heart is normal. The pulmonary vascularity is not increased. No pneumonia or pneumothorax is seen. Impression: Negative chest.
--- NOTE | 2023-05-22 08:25 | ECG_ITS ---
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 Measurements Intervals [place] Rate: 89 P: 39 PA: 153 QRS: 34 QRSD: 88 T: 32 QT: 356 QTc: 433 Interpretive Statements SINUS RHYTHM Compared to ECG 02/15/2019 20:48:56 Sinus tachycardia no longer present T-wave abnormality no longer present Electronically Signed On 05-22-2023 10:10:17 SR. PRICING ANALYST by Julio Harrison M.D. [id number] f
--- NOTE | 2023-05-22 08:39 | ED_ITS ---
HPI - Abdominal Pain 2 General: Chief Complaint: Abdominal Pain Stated Complaint: CP, ABD pain Time Seen by Provider: 05/22/23 08:23 Source: patient Mode of arrival: ambulatory History of Present Illness: 28-year-old female presents emergency ro om complaining of lower abdominal and back pain. She has had this for last couple of days she also had a cough and some chest comfort that began overnight. She had noticed some blood in her urine. She has an IUD she does not have any menstrual cycles anymore. She has had kidney stones in the past she thought early on the spine have been a kidney stone she complaining more of abdominal pain now she has not really taken anything for it. She denies any dysuria urgency or frequency. No hematochezia melena or hematemesis. MD elicited complaint: abdominal pain Pertinent past history: kidney stones Onset (ago): day(s) Pain Consistency: constant Associated Symptoms: Denies chills, dysuria and fever(s) Review of Systems 2 Const: Denies: fever(s) or chills Card: Denies: chest pain Resp: Denies: dyspnea GI: Denies: abdominal pain : Denies: dysuria, urinary frequency or urinary urgency Musc: Denies: neck pain or back pain Skin/Breast: Denies: rash PFSH ED 2 PFSH: Medical History No pertinent family history No pertinent past medical history Social History Smoking and tobacco/nicotine status: never used tobacco/nicotine Physical Exam 2 Const: COMMON NORMALS: no acute distress GENERAL APPEARANCE: cooperative and comfortable ORIENTATION/CONSCIOUSNESS: Yes awake, Yes oriented to person, Yes oriented to place and Yes oriented to time HENMT: COMMON NORMALS: normocephalic, atraumatic and hearing grossly normal bilaterally HEAD & SCALP: normocephalic and atraumatic Resp: COMMON NORMALS: normal respiratory effort, No retractions, No use of accessory muscles and clear to auscultation bilaterally AUSCULTATION: clear to auscultation bilaterally Cardio: COMMON NORMALS: regular rate, regular rhythm and No murmurs present (Cardio) RATE: regular rate RHYTHM: regular rhythm GI: COMMON NORMALS: Soft to palpation and No hepatosplenomegaly present A USCULTATION: Yes normoactive bowel sounds PALPATION: Yes Soft to palpation, No Tenderness to palpation present (GI), No Guarding due to palpation present (GI) and Yes No hepatosplenomegaly present Extremity: COMMON NORMALS: normal to inspection, capillary refill normal, no clubbing, cyanosis or edema, no calf tenderness and no pedal edema Neuro: SENSORIUM/ORIENTATION: Yes oriented to person, Yes oriented to place and Yes oriented to time Skin: COMMON NORMALS: no rashes or lesions noted GENERAL SKIN EXAM: no rashes or lesions noted Course 2 Vital Signs: Vital signs: Vital Signs Temperature 98 F 05/22/23 08:15 Pulse Rate 72 05/22/23 11:47 Blood Pressure 133/85 05/22/23 11:47 Pulse Oximetry 98 05/22/23 11:47 Oxygen Delivery Me thod Room Air 05/22/23 11:47 MDM - Abdominal Pain Medical Decision Making Labs and imaging reviewed 3+ blood on UA. CT shows IUD in good position. No acute findings on the CT otherwise no renal calcifications hydronephrosis or hydroureter. On microscopic 0-4 reds and whites of 10-15 squamous cells think this is mostly contaminant. Otherwise she has an ovarian cyst no leukocytosis no other findings discharge home have her follow-up for repeat evaluation of ovarian cyst in 1-2 cycles. Return if she has further problems Lab Data 05/22/23 08:30 05/22/23 08:30 Labs/Radiology: Radiology Impressions Abdomen/Pelvis CT 05/22/23 08:54 IMPRESSION: 1. Intrauterine device . 2. No acute intra-abdominal process. No inflammatory process. No obstruction. 3. No free fluid within the pelvis or within the dependent portions of the peritoneum. 4. Appendix normal. 5. Small hiatal hernia. 6. No renal calcifications, hydronephrosis, or hydroureter. 7. 2 cm ovarian cyst on the left. Laboratory Results WBC 8.75 10^3/uL (3.29-11.43) 05/22/23 08:30 RBC 4.68 10^6/uL (3.85-5.65) 05/22/23 08:30 Hgb 12.90 g/dL (11.27-16.99) 05/22/23 08:30 Hct 39.6 % (36-47) 05/22/23 08:30 MCV 84.6 fl (85-98) L 05/22/23 08:30 MCH 27.6 pg (27-33) 05/22/23 08:30 MCHC 32.6 g/dL (30-55) 05/22/23 08:30 RDW 14.1 % (12.1-15.1) 05/22/23 08:30 Plt Count 227 10^3/cmm (157-399) 05/22/23 08:30 MPV 10.8 fL (7.4-10.4) H 05/22/23 08:30 Neut % (Auto) 59.6 % 05/22/23 08:30 Lymph % (Auto) 29.0 % 05/22/23 08:30 [place] % (Auto) 6.1 % 05/22/23 08:30 Eos % (Auto) 4.2 % 05/22/23 08:30 Baso % (Auto) 0.5 % 05/22/23 08:30 Neut # (Auto) 5.22 10^3/uL (1.8-7.7) 05/22/23 08:30 Lymph # (Auto) 2.5 10^3/uL (0.8-4.8) 05/22/23 08:30 Emmons # (Auto) 0.5 10^3/uL (0.2-0.9) 05/22/23 08:30 Eos # (Auto) 0.4 10^3/uL (0.0-0.8) 05/22/23 08:30 Baso # (Auto) 0.0 10^3/uL (0.0-0.1) 05/22/23 08:30 Nucleated RBC % (auto) 0 % 05/22/23 08:30 Nucleated RBCs # 0.0 /100WBC 05/22/23 08:30 Sodium 136 mmol/L (136-145) 05/22/23 08:30 Potassium 4.3 mmol/L (3.5-5.1) 05/22/23 08:30 Chloride 103 mmol/L (98-107) 05/22/23 08:30 Carbon Dioxide 23 mmol/L (22-29) 05/22/23 08:30 Anion Gap 14.3 (5-19) 05/22/23 08:30 BUN 12 mg/dL (6-20) 05/22/23 08:30 Creatinine 0.7 mg/dL (0.5-0.9) 05/22/23 08:30 GFR Calculation 98.3 mL/min (90-130) 05/22/23 08:30 Glucose 119 mg/dL (65-115) H 05/22/23 08:30 Calculated Osmolality 283 mOsm/kg (285-295) L 05/22/23 08:30 Calcium 9.1 mg/dL (8.5-10.5) 05/22/23 08:30 Total Bilirubin 0.3 mg/dL (0.15-1.2) 05/22/23 08:30 AST 15 U/L (0-32) 05/22/23 08:30 ALT 12 U/L (0-33) 05/22/23 08:30 Alkaline Phosphatase 121 U/L (35-105) H 05/22/23 08:30 Total Protein 7.3 g/dL (6.6-8.7) 05/22/23 08:30 Albumin 3.9 g/dL (3.5-5.2) 05/22/23 08:30 Globulin 3.4 g/dL (1.3-4.6) 05/22/23 08:30 Lipase 27 U/L (13-60) 05/22/23 08:30 HCG, Qual Negative (Negative) 05/22/23 08:30 Urine Color Straw (Yellow) 05/22/23 09:06 Urine Appearance Sl hazy (CLEAR) A 05/22/23 09:06 Urine pH 5 (5-7) 05/22/23 09:06 Ur Specific [place] 1.015 (1.005-1.030) 05/22/23 09:06 Urine Protein Neg (Negative) 05/22/23 09:06 Urine Glucose (UA) Norm (Normal) 05/22/23 09: Urine Ketones Negative (Negative) 05/22/23 09:06 Urine Blood 3+ (Negative) H 05/22/23 09:06 Urine Nitrate Negative (Negative) 05/22/23 09:06 Urine Bilirubin Neg (Negative) 05/22/23 09: Urine Urobilinogen Neg mg/dL (Negative) 05/22/23 09:06 Ur Leukocyte Esterase Trace (Negative) H 05/22/23 09:06 Urine RBC 0-4 /hpf (0-2) H 05/22/23 09:06 Urine WBC 0-4 /hpf (0-5) H 05/22/23 09:06 Ur Squamous Epith Cells 10-15 /hpf (0-5) H 05/22/23 09:06 Amorphous Sediment Not Reportable 05/22/23 09:06 Urine Bacteria 1+ /hpf (NONE) H 05/22/23 09:06 All radiology interpretation(s) finalized by discharge Discharge Plan Discharge Patient Disposition: Home Clinical Impression: Ovarian cyst Condition: Stable Prescriptions: New diclofenac sodium 75 mg tablet,delayed release (DR/EC) 75 mg PO Q12H PRN (Reason: pain) Qty: 20 0RF Discontinued ibuprofen 200 mg Tablet 800 mg PO Q6H PRN (Reason: Pain) No Action Mirena 20 mcg/24 hours (5 yrs) 52 mg Intrauterine Device See Rx Instructions .ROUTE .COMPLEX Rx Instructions: DIRECTED propranolol 40 mg tablet 40 mg PO BID Women's Daily Formula 18 mg iron-400 mcg-500 mg Tablet 1 tab PO DAILY Discharge Orders: Discharge ED (Routine); Ordered 05/22/23 Ordered By: Arnulfo Cano Referrals: Rafael Molina MD [Primary Care Provider] - Discharge Diet: Usual diet Discharge Activity: Increase activity as tolerated Patient Instructions: Opioid Safety, Pain Management Activity Restrictions/Additional Instructions: Thank you for choosing [facility] for your healthcare needs today. Please realize this is an emergency room and that we are providing you with a medical screening exam and this may not be complete and all inclusive of all the testing and or work up that you may need to determine your ailment or severity of your illness. It is very important that you follow up as instructed or that you return to the Emergency Department should you have concerns or if your condition changes or worsens in any way. You were seen today for abdominal pelvic discomfort CT was negative laboratory tests unremarkable did see a small ovarian cyst on the left which may play a role in the discomfort. Recommend you follow-up with your primary care doctor or gynecology. You are given diclofenac to use for pain instead of ibuprofen. Coding Level of Care Code ED Mailing Machine Helper for Iram Briones
[2023-05-22 08:41] LABS: Basophils % 0.5 %; Eosinophils # 0.4 10^3/uL (0.0-0.8); Eosinophils % 4.2 %; Hematocrit 39.6 % (36-47); Lymphocytes # 2.5 10^3/uL (0.8-4.8); Mean Corpuscular HGB Conc 32.6 g/dL (30-55); Mean Corpuscular Hemoglobin 27.6 pg (27-33); Mean Corpuscular Volume 84.6 fl (85-98); Mean Platelet Volume 10.8 fL (7.4-10.4); Monocytes # 0.5 10^3/uL (0.2-0.9); Monocytes % 6.1 %; Neutrophils # 5.22 10^3/uL (1.8-7.7); Neutrophils % 59.6 %; Nucleated Red Blood Cells % 0 %; Platelet Count 227 10^3/cmm (157-399); Red Blood Count 4.68 10^6/uL (3.85-5.65); Red Cell Distribution Width 14.1 % (12.1-15.1); White Blood Count 8.75 10^3/uL (3.29-11.43)
[2023-05-22 08:54] LABS: HCG, Serum Qual Negative (Negative)
--- NOTE | 2023-05-22 08:54 | CTR_ITS ---
PROCEDURE INFORMATION: Exam: CT Abdomen And Pelvis Without Contrast Exam date and time: 05/22/2023 9:30 AM Age: 28 years old Clinical indication: Abdominal pain; Localized; Prior surgery; Surgery date: 6+ months; Surgery type: Iud; Patient HX: Severe lower abd and back pain TECHNIQUE: Imaging protocol: Computed tomography of the abdomen and pelvis without contrast. Radiation optimization: All CT scans at this facility use at least one of these dose optimization techniques: automated exposure control; mA and/or kV adjustment per patient size (includes targeted exams where dose is matched to clinical indication); or iterative reconstruction. COMPARISON: CT abdomen pelvis w con* [id number] 12/19/2022 4:26 PM RADIATION DOSE METRICS: Total DLP (mGy-cm): 1301.95 FINDINGS: Lungs: Visualized portions of the lung bases are normal. Diaphragm: Small hiatal hernia. Liver: Normal. No mass. Gallbladder and bile ducts: Normal. No calcified stones. No ductal dilation. Pancreas: Normal. No ductal dilation. Spleen: Normal. No splenomegaly. Adrenal glands: Normal. No mass. Kidneys and ureters: No renal calcifications, hydronephrosis, or hydroureter. Stomach and bowel: Unremarkable. No obstruction. No mucosal thickening. Appendix: Appendix normal. Intraperitoneal space: No acute intra-abdominal process. No inflammatory process. No obstruction. No free fluid within the pelvis or within the dependent portions of the peritoneum. Vasculature: Unremarkable. No abdominal aortic aneurysm. Lymph nodes: Unremarkable. No enlarged lymph nodes. Urinary bladder: Unremarkable as visualized. Reproductive: intrauterine device . 2 cm ovarian cyst on the left. Bones/joints: Osseous structures are unremarkable. No fracture. Soft tissues: Unremarkable. CT/CT abdomen pelvis con [id number] IMPRESSION: 1. Intrauterine device . 2. No acute intra-abdominal process. No inflammatory process. No obstruction. 3. No free fluid within the pelvis or within the dependent portions of the peritoneum. 4. Appendix normal. 5. Small hiatal hernia. 6. No renal calcifications, hydronephrosis, or hydroureter. 7. 2 cm ovarian cyst on the left.
[2023-05-22 09:00] LABS: Alanine Aminotransferase 12 U/L (0-33); Albumin Level 3.9 g/dL (3.5-5.2); Alkaline Phosphatase 121 U/L (35-105); Anion Gap 14.3 (5-19); Aspartate Amino Transferase 15 U/L (0-32); Blood Urea Nitrogen 12 mg/dL (6-20); Calcium 9.1 mg/dL (8.5-10.5); Carbon Dioxide 23 mmol/L (22-29); Chloride 103 mmol/L (98-107); Globulin 3.4 g/dL (1.3-4.6); Glomerular Filtration Rate 98.3 mL/min (90-130); Glucose 119 mg/dL (65-115); Lipase 27 U/L (13-60); Osmolality Calculated 283 mOsm/kg (285-295); Potassium 4.3 mmol/L (3.5-5.1); Sodium 136 mmol/L (136-145); Total Bilirubin 0.3 mg/dL (0.15-1.2); Total Protein 7.3 g/dL (6.6-8.7)
[2023-05-22] MEDS: sodium chloride 0.9% 1,000 ML 999 ML IV (09:00)
[2023-05-22] MEDS: ondansetron 2 mg/ML SDV 2 mL 4 MG IVP (09:00)
[2023-05-22 09:20] VITALS: BP 129/82; PULSE 72; O2SAT 98
[2023-05-22] MEDS: morphine 4 mg/mL SDV 1 mL IVP (09:50)
[2023-05-22 09:59] LABS: Add Urine Microscopic? YES; Bilirubin Urine Neg (Negative); Blood Urine 3+ (Negative); Glucose Urine UA Norm (Normal); Ketones Urine Negative (Negative); Leukocyte Esterase Urine Trace (Negative); Nitrate Urine Negative (Negative); Protein Urine Neg (Negative); Specific Gravity, Urine 1.015 (1.005-1.030); Urine Appearance SL Hazy (CLEAR); Urine Color Straw (Yellow); Urobilinogen Urine Neg (Negative); pH Urine 5 (5-7)
[2023-05-22 10:00] VITALS: BP 145/89; PULSE 75; O2SAT 97
[2023-05-22 10:00] LABS: Add Urine Culture? No; Bacteria Urine 1+ /hpf; RBC Urine 0-4 /hpf (0-2); WBC Urine 0-4 /hpf (0-5)
[2023-05-22 10:33] VITALS: BP 151/69; PULSE 71; O2SAT 99
[2023-05-22 11:00] VITALS: BP 132/75; PULSE 79; O2SAT 97
[2023-05-22] MEDS: ketorolac 30 mg/mL INJ IVP (11:41)
[2023-05-22 11:47] VITALS: BP 133/85; PULSE 72; O2SAT 98
== END 2023-05-22 12:00 | disposition home or self-care (01) ==
PROVIDERS: Emergency Provider Family Medicine; PCP Family Medicine
DX: N83.202 Unspecified ovarian cyst, left side (principal); K44.9 Diaphragmatic hernia without obstruction or gangrene
CPT/HCPCS: 71045; 74176; 80053; 81001; 83690; 84703; 85025; 93005; 96361; 96374; 96375; 99285; J1885; J2270; J2405; J7030

== ENCOUNTER 2024-02-04 15:10 | Emergency (ER) | payer BC, SELFPAY ==
--- NOTE | 2024-02-04 15:16 | ECG_ITS ---
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 Measurements Intervals [place] Rate: 74 P: 36 NE: 159 QRS: 33 QRSD: 92 T: 31 QT: 367 QTc: 407 Interpretive Statements SINUS RHYTHM POSSIBLE LEFT ATRIAL ENLARGEMENT [-0.1mV P-WAVE IN V1/V2] POSSIBLE RIGHT VENTRICULAR CONDUCTION DELAY [RSR (QR) IN V1/V2] NONSPECIFIC T-WAVE ABNORMALITY Compared to ECG 05/22/2023 08:14:46 T-wave abnormality now present Electronically Signed On 02-05-2024 8:19:29 CDT by Julio Harrison M.D. [id number]
[2024-02-04 15:20] VITALS: BP 125/81; PULSE 77; RESP 16; TEMP 36.7; O2SAT 97; BMI 53.1
--- NOTE | 2024-02-04 15:26 | W.ED.CHESTPA ---
HPI - Chest Pain General: Chief Complaint: Chest Pain Stated Complaint: cp Time Seen by Provider: 02/04/24 15:12 Source: patient Mode of arrival: ambulatory Limitations: no limitations History of Present Illness: MD complaint: chest pain Onset (ago): hour(s) Timing of current episode: constant Prior episodes: No Onset: during rest Pain radiation: none Severity: moderate Relieving factors: nothing Exacerbating factors: nothing Associated symptoms: Deny abdominal pain, dyspnea, fever(s), nausea, palpitations, syncope or vomiting Treatment prior to arrival: none Risk Factors: Coronary artery disease risk factors: none Thoracic aortic dissection risk factors: none Related Data Home Medications Medication Instructions Recorded Confirmed levonorgestrel 21 mcg/24 hr (up to See Rx Instructions .Route .COMPLEX 02/18/20 05/22/23 8 years) 52 mg intrauterine device (Mirena) [id number]-[id number]-FA-Ca carb-vit K 1 tab PO DAILY 05/22/23 05/22/23 18 mg iron-400 mcg-500 mg tablet (Women's Daily Formula) propranolol 40 mg tablet 40 mg PO BID 05/22/23 05/22/23 Previous Rx's Medication Instructions Recorded diclofenac sodium 75 mg 75 mg PO Q12H PRN pain #20 tabs 05/22/23 tablet,delayed release Allergies Allergy/AdvReac Type Severity Reaction Status Date / Time amoxicillin Allergy ALGY-Anaphy Verified 05/22/23 08:22 laxis Sulfa (Sulfonamide Allergy ALGY-Anaphy Verified 05/22/23 08:22 Antibiotics) laxis Review of Systems Const: Denies: fever(s), chills, body aches, fatigue or malaise ENMT: Denies: throat pain or odynophagia Card: Reports: chest pain; Denies: palpitations, irregular heart rhythm, edema, swelling of feet/ankles, lightheadedness, syncope, pre-syncope, dyspnea on exertion, orthopnea, leg pain with exertion or acrocyanosis Resp: Denies: dyspnea, productive cough, non-productive cough, wheezing, pain on inspiration, hemoptysis or chest congestion GI: Denies: abdominal pain, nausea, vomiting or diarrhea : Denies: flank pain, dysuria, hematuria or pelvic pain Musc: Denies: neck pain, back pain, extremity pain, joint pain or joint swelling Skin/Breast: Denies: rash Neuro: Denies: headache(s), numbness in extremities, weakness in extremities, sensory changes or dizziness PFSH ED PFSH: Medical History No pertinent family history No pertinent past medical history Social History Smoking and tobacco/nicotine status: never used tobacco/nicotine Physical Exam Const: COMMON NORMALS: no acute distress, average body habitus, patient oriented x3, no limitations, healthy appearing, alert and well nourished GENERAL APPEARANCE: cooperative ORIENTATION/CONSCIOUSNESS: Yes awake, Yes oriented to person, Yes oriented to place and Yes oriented to time HENMT: COMMON NORMALS: normocephalic and atraumatic HEAD & SCALP: normal to inspection, normocephalic and atraumatic Eye: COMMON NORMALS: no scleral icterus Neck/C-Spine: COMMON NORMALS: full ROM, no lymphadenopathy, supple and no meningeal signs Chest: COMMONS NORMALS: normal inspection of the chest and normal palpation of entire chest wall Resp: COMMON NORMALS: normal respiratory effort and clear to auscultation bilaterally AUSCULTATION: clear to auscultation bilaterally Cardio: COMMON NORMALS: regular rate and regular rhythm RATE: regular rate RHYTHM: regular rhythm GI: COMMON NORMALS: Normal to inspection, nondistended, normoactive bowel sounds present, Soft to palpation, non-tender, No hepatosplenomegaly present and no masses PALPATION: Yes Soft to palpation and Yes No hepatosplenomegaly present : COMMON NORMALS: Yes no CVA tenderness BLADDER/KIDNEY EXAM: Yes no CVA tenderness Back/Pelvis: COMMON NORMALS: no CVA tenderness and thoracic and lumbar spine normal to inspection Extremity: COMMON NORMALS: normal to inspection, no clubbing, cyanosis or edema, no calf tenderness and no pedal edema GENERAL: Yes normal exam except as noted Neuro: COMMON NORMALS: patient oriented x3, moves all extremities, no focal motor deficits and no sensory deficits noted SENSORIUM/ORIENTATION: Yes alert, Yes oriented to person, Yes oriented to place and Yes oriented to time MENINGEAL SIGNS: Yes no meningeal signs Skin: COMMON NORMALS: no rashes or lesions noted GENERAL SKIN EXAM: no rashes or lesions noted Course Vital Signs: Vital signs: Vital Signs Temperature 98.1 F 02/04/24 15:20 Pulse Rate 77 02/04/24 15:20 Respiratory Rate 16 02/04/24 15:20 Blood Pressure 125/81 02/04/24 15:20 Pulse Oximetry 97 02/04/24 15:20 Oxygen Delivery Me thod Room Air 02/04/24 15:20 Discharge Plan Discharge Condition: Stable Prescriptions: No Action Mirena 20 mcg/24 hours (5 yrs) 52 mg Intrauterine Device See Rx Instructions .ROUTE .COMPLEX Rx Instructions: DIRECTED propranolol 40 mg tablet 40 mg PO BID Women's Daily Formula 18 mg iron-400 mcg-500 mg Tablet 1 tab PO DAILY diclofenac sodium 75 mg tablet,delayed release (DR/EC) 75 mg PO Q12H PRN (Reason: pain) Qty: 20 0RF Referrals: Rafael Molina MD [Primary Care Provider] - Coding Level of Care Code ED Pharmacy Specialist for Iram Briones
--- NOTE | 2024-02-04 15:27 | XR_ITS ---
WS: [id number] PORTABLE CHEST HISTORY: chest pain COMPARISON: None available. Reduced lung volumes. Lungs are clear. Normal vascularity. No pleural effusion or pneumothorax. Cardiac size: Normal. Mediastinum/Aorta: Normal mediastinum. No osseous abnormality seen. XR/XR chest 1V portable [id number] IMPRESSION: Unremarkable portable chest.
--- NOTE | 2024-02-04 15:46 | ED_ITS ---
HPI - Abdominal Pain 2 General: Chief Complaint: Chest Pain Stated Complaint: cp Time Seen by Provider: 02/04/24 15:12 Source: patient Mode of arrival: ambulatory Limitations: no limitations History of Present Illness: Patient is a nice 28-year-old female presents to ED today with a complaint of upper abdominal pain starting yesterday evening. Patient states she is not sure if it is related, but states pain started shortly after she administered her semaglutide to her abdomen. She states since starting this medication 6 weeks ago she has not had much GI side effects. She states the pain is located to her epigastric/left upper quadrant and seems to radiate up into her chest and feels like a burning heartburn/GERD. She did attempt to treat with Pepto and Tums without much relief. She is not having any substernal chest pain, shortness of breath, difficulty breathing. MD elicited complaint: abdominal pain Pertinent past history: none Onset (ago): day(s) (yesterday evening) Pain Consistency: constant Location: Epigastric and LUQ Severity: moderate Radiation: none Migration to: no migration Exacerbating factors: eating Relieving factors: nothing Associated Symptoms: Reports heartburn; Denies chills, constipation, diarrhea, dysuria, excessive flatus, fever(s), hematochezia, melena, nausea, syncope and vomiting Related Data Home Medications Medication Instructions Recorded Confirmed levonorgestrel 21 mcg/24 hr (up to See Rx Instructions .Route .COMPLEX 02/18/20 05/22/23 8 years) 52 mg intrauterine device (Mirena) xbguukzq-jik-hznu-FA-Ca carb-vit K 1 tab PO DAILY 05/22/23 05/22/23 18 mg iron-400 mcg-500 mg tablet (Women's Daily Formula) propranolol 40 mg tablet 40 mg PO BID 05/22/23 05/22/23 Previous Rx's Medication Instructions Recorded diclofenac sodium 75 mg 75 mg PO Q12H PRN pain #20 tabs 05/22/23 tablet,delayed release Allergies Allergy/AdvReac Type Severity Reaction Status Date / Time amoxicillin Allergy ALGY-Anaphy Verified 05/22/23 08:22 laxis Sulfa (Sulfonamide Allergy ALGY-Anaphy Verified 05/22/23 08:22 Antibiotics) laxis Review of Systems 2 Const: Denies: fever(s), chills, body aches, fatigue or malaise Card: Reports: chest pain; Denies: palpitations, irregular heart rhythm, edema, swelling of feet/ankles, lightheadedness, syncope, pre-syncope, dyspnea on exertion, orthopnea, leg pain with exertion or acrocyanosis Resp: Denies: dyspnea, productive cough, non-productive cough, wheezing, stridor, pain on inspiration, change in phlegm color, hemoptysis or chest congestion GI: Reports: abdominal pain and heartburn; Denies: nausea, vomiting, diarrhea, constipation, excessive flatus, hematochezia or melena : Denies: flank pain, difficulty voiding, dysuria, urinary frequency, urinary urgency or urinary hesitancy Musc: Denies: neck pain, back pain, extremity pain, extremity swelling, joint pain or joint swelling Skin/Breast: Denies: rash Neuro: Denies: headache(s), numbness in extremities, weakness in extremities, sensory changes or dizziness PFSH ED 2 PFSH: Medical History No pertinent family history No pertinent past medical history Social History Smoking and tobacco/nicotine status: never used tobacco/nicotine Physical Exam 2 Const: COMMON NORMALS: no acute distress, patient oriented x3, no limitations, alert and well nourished GENERAL APPEARANCE: cooperative NUTRITIONAL APPEARANCE: obese ORIENTATION/CONSCIOUSNESS: Yes awake, Yes oriented to person, Yes oriented to place and Yes oriented to time Eye: COMMON NORMALS: no scleral icterus Chest: COMMONS NORMALS: normal inspection of the chest and normal palpation of entire chest wall Resp: COMMON NORMALS: normal respiratory effort and clear to auscultation bilaterally AUSCULTATION: clear to auscultation bilaterally Cardio: COMMON NORMALS: regular rate and regular rhythm RATE: regular rate RHYTHM: regular rhythm GI: COMMON NORMALS: Normal to inspection, nondistended, normoactive bowel sounds present, Soft to palpation and no masses INSPECTION: Yes normal to inspection AUSCULTATION: Yes normoactive bowel sounds PALPATION: Yes Soft to palpation and Yes Tenderness to palpation present (GI) (epigastric/LUQ) : COMMON NORMALS: Yes no CVA tenderness BLADDER/KIDNEY EXAM: Yes no CVA tenderness Back/Pelvis: COMMON NORMALS: no CVA tenderness Extremity: GENERAL: Yes normal exam except as noted Neuro: COMMON NORMALS: patient oriented x3, moves all extremities, no focal motor deficits and no sensory deficits noted SENSORIUM/ORIENTATION: Yes alert, Yes oriented to person, Yes oriented to place and Yes oriented to time Course 2 Vital Signs: Vital signs: Vital Signs Temperature 98.1 F 02/04/24 15:20 Pulse Rate 77 02/04/24 15:20 Respiratory Rate 16 02/04/24 15:20 Blood Pressure 125/81 02/04/24 15:20 Pulse Oximetry 97 02/04/24 15:20 Oxygen Delivery Me thod Room Air 02/04/24 15:20 MDM - Abdominal Pain Medical Decision Making Patient was significant relief following a GI cocktail. Blood work overall is unremarkable. CXR and EKG obtained as she initially was triaged as a complaint of chest pain. These are unremarkable. No free air under her abdomen on CXR. Symptoms most likely secondary to GI side effect of semaglutide. Recommend dietary restrictions and jkgw-uok-zreblfk therapies. Return to ED precautions given. Did discuss possibly placing her on Carafate/PPI but she would like to try the klqk-pkd-pvlfofl medications first. Medical Records I reviewed the patient's medical records. Lab Data I reviewed the patient's lab results. 02/04/24 15:56 02/04/24 15:56 Labs/Radiology: Radiology Impressions Chest X-Ray 02/04/24 15:27 IMPRESSION: Unremarkable portable chest. Laboratory Results WBC 9.75 10^3/uL (3.29-11.43) 02/04/24 15:56 RBC 4.63 10^6/uL (3.85-5.65) 02/04/24 15:56 Hgb 13.40 g/dL (11.27-16.99) 02/04/24 15:56 Hct 40.7 % (36-47) 02/04/24 15:56 MCV 87.9 fl (85-98) 02/04/24 15:56 MCH 28.9 pg (27-33) 02/04/24 15:56 MCHC 32.9 g/dL (30-55) 02/04/24 15:56 RDW 13.6 % (12.1-15.1) 02/04/24 15:56 Plt Count 208 10^3/cmm (157-399) 02/04/24 15:56 MPV 11.5 fL (7.4-10.4) H 02/04/24 15:56 Neut % (Auto) 55.8 % 02/04/24 15:56 Lymph % (Auto) 33.6 % 02/04/24 15:56 Titus % (Auto) 5.8 % 02/04/24 15:56 Eos % (Auto) 3.9 % 02/04/24 15:56 Baso % (Auto) 0.4 % 02/04/24 15:56 Neut # (Auto) 5.43 10^3/uL (1.8-7.7) 02/04/24 15:56 Lymph # (Auto) 3.3 10^3/uL (0.8-4.8) 02/04/24 15:56 Titus # (Auto) 0.6 10^3/uL (0.2-0.9) 02/04/24 15:56 Eos # (Auto) 0.4 10^3/uL (0.0-0.8) 02/04/24 15:56 Baso # (Auto) 0.0 10^3/uL (0.0-0.1) 02/04/24 15:56 Nucleated RBC % (auto) 0 % 02/04/24 15:56 Nucleated RBCs # 0.0 /100WBC 02/04/24 15:56 Sodium 140 mmol/L (136-145) 02/04/24 15:56 Potassium 4.0 mmol/L (3.5-5.1) 02/04/24 15:56 Chloride 105 mmol/L (98-107) 02/04/24 15:56 Carbon Dioxide 24 mmol/L (22-29) 02/04/24 15:56 Anion Gap 15.0 (5-19) 02/04/24 15:56 BUN 12 mg/dL (6-20) 02/04/24 15:56 Creatinine 0.8 mg/dL (0.5-0.9) 02/04/24 15:56 GFR Calculation 84.2 mL/min (90-130) L 02/04/24 15:56 Glucose 94 mg/dL (65-115) 02/04/24 15:56 Calculated Osmolality 290 mOsm/kg (285-295) 02/04/24 15:56 Calcium 9.0 mg/dL (8.5-10.5) 02/04/24 15:56 Total Bilirubin 0.3 mg/dL (0.15-1.2) 02/04/24 15:56 AST 14 U/L (0-32) 02/04/24 15:56 ALT 14 U/L (0-33) 02/04/24 15:56 Alkaline Phosphatase 84 U/L (35-105) 02/04/24 15:56 Total Protein 6.8 g/dL (6.6-8.7) 02/04/24 15:56 Albumin 3.9 g/dL (3.5-5.2) 02/04/24 15:56 Globulin 2.9 g/dL (1.3-4.6) 02/04/24 15:56 Lipase 26 U/L (13-60) 02/04/24 15:56 HCG, Qual Negative (Negative) 02/04/24 15:56 All radiology interpretation(s) finalized by discharge Discharge Plan Discharge Patient Disposition: Home Clinical Impression: Dyspepsia Condition: Stable Prescriptions: No Action Mirena 20 mcg/24 hours (5 yrs) 52 mg Intrauterine Device See Rx Instructions .ROUTE .COMPLEX Rx Instructions: DIRECTED propranolol 40 mg tablet 40 mg PO BID Women's Daily Formula 18 mg iron-400 mcg-500 mg Tablet 1 tab PO DAILY diclofenac sodium 75 mg tablet,delayed release (DR/EC) 75 mg PO Q12H PRN (Reason: pain) Qty: 20 0RF Discharge Orders: Discharge ED (Routine); Ordered 02/04/24 Ordered By: Cassia Stack Referrals: Rafael Molina MD [Primary Care Provider] - Patient Instructions: Gastritis (DC), Indigestion (ED) Activity Restrictions/Additional Instructions: As we discussed please avoid salty, spicy, acidic foods. You may try ohnu-apy-[id number] Maalox as well as Tums/Famotidine to try and help with symptoms. You may follow-up with primary care or return to the emergency department for worsening abdominal pain, chest pain, severe difficulty breathing, or shortness of breath, repetitive episodes of vomiting, blood in your vomit, generally feeling worse or unwell, or any other concerns you may have. Hope you begin to feel better soon. Coding Level of Care Code ED Supervisor Public Message Service for Iram Briones
[2024-02-04 16:01] LABS: Basophils % 0.4 %; Eosinophils # 0.4 10^3/uL (0.0-0.8); Eosinophils % 3.9 %; Hematocrit 40.7 % (36-47); Lymphocytes # 3.3 10^3/uL (0.8-4.8); Lymphocytes % 33.6 %; Mean Corpuscular HGB Conc 32.9 g/dL (30-55); Mean Corpuscular Hemoglobin 28.9 pg (27-33); Mean Corpuscular Volume 87.9 fl (85-98); Mean Platelet Volume 11.5 fL (7.4-10.4); Monocytes # 0.6 10^3/uL (0.2-0.9); Monocytes % 5.8 %; Neutrophils # 5.43 10^3/uL (1.8-7.7); Neutrophils % 55.8 %; Nucleated Red Blood Cells % 0 %; Platelet Count 208 10^3/cmm (157-399); Red Blood Count 4.63 10^6/uL (3.85-5.65); Red Cell Distribution Width 13.6 % (12.1-15.1); White Blood Count 9.75 10^3/uL (3.29-11.43)
[2024-02-04 16:11] LABS: HCG, Serum Qual Negative (Negative)
[2024-02-04 16:18] LABS: Alanine Aminotransferase 14 U/L (0-33); Albumin Level 3.9 g/dL (3.5-5.2); Alkaline Phosphatase 84 U/L (35-105); Aspartate Amino Transferase 14 U/L (0-32); Blood Urea Nitrogen 12 mg/dL (6-20); Carbon Dioxide 24 mmol/L (22-29); Chloride 105 mmol/L (98-107); Creatinine Clr Calc Pharmacy 139.3325; Globulin 2.9 g/dL (1.3-4.6); Glomerular Filtration Rate 84.2 mL/min (90-130); Glucose 94 mg/dL (65-115); Lipase 26 U/L (13-60); Osmolality Calculated 290 mOsm/kg (285-295); Sodium 140 mmol/L (136-145); Total Bilirubin 0.3 mg/dL (0.15-1.2); Total Protein 6.8 g/dL (6.6-8.7)
[2024-02-04] MEDS: lidocaine 2% viscous 15 ML, aluminum-mag hydrox-simethicon 30 ML, sucralfate oral liq 1 GM PO (16:39)
[2024-02-04 17:16] VITALS: BP 133/87; PULSE 77; O2SAT 98
== END 2024-02-04 17:16 | disposition home or self-care (01) ==
PROVIDERS: Emergency Provider Physician Assistant; PCP Family Medicine
DX: R10.13 Epigastric pain (principal)
CPT/HCPCS: 36415; 71045; 80053; 83690; 84703; 85025; 93005; 99285

== ENCOUNTER → 2024-07-14 19:05 | Outpatient (BNVA) | payer SELFPAY | PROVIDERS: PCP Family Medicine | DX: S40.021A Contusion of right upper arm, initial encounter (principal); M79.631 Pain in right forearm; X58.XXXA Exposure to other specified factors, initial encounter | CPT/HCPCS: 73090; 73130 ==

== ENCOUNTER 2024-09-24 20:21 | Emergency (ER) | payer SELFPAY ==
[2024-09-24 20:52] VITALS: BP 125/86; PULSE 97; RESP 18; TEMP 37.1; O2SAT 99; BMI 44.2
[2024-09-24 23:26] VITALS: BP 128/94; PULSE 93; RESP 18; O2SAT 98
[2024-09-24] MEDS: ondansetron 2 mg/ML SDV 2 mL 4 MG IVP (23:34)
[2024-09-24] MEDS: sodium chloride 0.9% 1,000 ML 999 ML IV (23:36)
[2024-09-24 23:41] LABS: Basophils % 0.3 %; Eosinophils # 0.5 10^3/uL (0.0-0.8); Eosinophils % 3.7 %; Hematocrit 43.1 % (36-47); Lymphocytes % 22.6 %; Mean Corpuscular HGB Conc 32.9 g/dL (30-55); Mean Corpuscular Hemoglobin 28.7 pg (27-33); Mean Corpuscular Volume 87.2 fl (85-98); Mean Platelet Volume 13.2 fL (7.4-10.4); Monocytes # 0.6 10^3/uL (0.2-0.9); Monocytes % 4.7 %; Neutrophils % 68.5 %; Nucleated Red Blood Cells % 0 %; Platelet Count 208 10^3/cmm (157-399); Red Blood Count 4.94 10^6/uL (3.85-5.65); Red Cell Distribution Width 13.8 % (12.1-15.1)
[2024-09-24 23:44] LABS: Bilirubin Urine Negative (Negative); Blood Urine Negative (Negative); Glucose Urine UA Negative (Normal); Ketones Urine 2+ (Negative); Leukocyte Esterase Urine 1+ (Negative); Nitrate Urine Negative (Negative); Protein Urine Negative (Negative); Urine Appearance Clear (CLEAR); Urine Color Yellow (Yellow); pH Urine 5.5 (5-7)
[2024-09-24 23:48] LABS: Add Urine Microscopic? YES; Bacteria Urine None Seen /hpf; Hyaline Casts Urine 0-4 /lpf; WBC Urine 0-5 /hpf (0-5)
[2024-09-24 23:55] LABS: Alanine Aminotransferase 11 U/L (0-33); Albumin Level 4.2 g/dL (3.5-5.2); Alkaline Phosphatase 84 U/L (35-105); Anion Gap 17.8 (5-19); Aspartate Amino Transferase 16 U/L (0-32); Blood Urea Nitrogen 13 mg/dL (6-20); Calcium 9.3 mg/dL (8.5-10.5); Carbon Dioxide 21 mmol/L (22-29); Chloride 102 mmol/L (98-107); Globulin 3.3 g/dL (1.3-4.6); Glomerular Filtration Rate 83.7 mL/min (90-130); Glucose 89 mg/dL (65-115); Lipase 30 U/L (13-60); Osmolality Calculated 284 mOsm/kg (285-295); Potassium 3.8 mmol/L (3.5-5.1); Sodium 137 mmol/L (136-145); Total Bilirubin 0.4 mg/dL (0.15-1.2); Total Protein 7.5 g/dL (6.6-8.7)
[2024-09-25] MEDS: prochlorperazine 10 mg/2 mL Inj IVP (00:17)
[2024-09-25 00:38] LABS: HCG Qualitative Urine. Negative (Negative)
--- NOTE | 2024-09-25 00:44 | CTR_ITS ---
PROCEDURE INFORMATION: Exam: CT Abdomen And Pelvis With Contrast Exam date and time: 09/25/2024 12:59 AM Age: 29 years old Clinical indication: Abdominal pain; Epigastric; Prior surgery; Surgery date: 6+ months; Surgery type: Right oophorectomy; Additional info: Abd pain TECHNIQUE: Imaging protocol: Computed tomography of the abdomen and pelvis with contrast. Radiation optimization: All CT scans at this facility use at least one of these dose optimization techniques: automated exposure control; mA and/or kV adjustment per patient size (includes targeted exams where dose is matched to clinical indication); or iterative reconstruction. Contrast material: OMNI 350; Contrast volume: 100 ml; Contrast route: INTRAVENOUS (IV); COMPARISON: CT abdomen pelvis wo con [id number] 05/22/2023 9:30 AM RADIATION DOSE METRICS: Total DLP (mGy-cm): 1001.2 FINDINGS: Liver: Normal. No mass. Gallbladder and biliary ducts: Normal. No calcified stones. No ductal dilation. Pancreas: Normal. No ductal dilation. Spleen: Normal. No splenomegaly. Adrenal glands: Normal. No mass. Kidneys and ureters: Normal. No hydronephrosis. Stomach and bowel: Prominent fluid in the small bowel and colon, please correlate for a gastroenteritis. Appendix: No evidence of appendicitis. Intraperitoneal space: Unremarkable. No free air. No significant fluid collection. Vasculature: Unremarkable. No abdominal aortic aneurysm. Lymph nodes: Unremarkable. No enlarged lymph nodes. Urinary bladder: Unremarkable as visualized. Reproductive: Left ovarian cysts measuring up to 16 mm, likely follicular. IUD in the uterine cavity. Bones/joints: Unremarkable. No acute fracture. Soft tissues: Unremarkable. CT/CT abdomen pelvis w con* [id number] IMPRESSION: 1. Prominent fluid in the small bowel and colon, please correlate for a gastroenteritis. 2. Left ovarian cysts measuring up to 16 mm, likely follicular. 3. IUD in the uterine cavity.
[2024-09-25] MEDS: iohexol 350 mg/mL 500 mL Btl (per mL) IV (01:04)
--- NOTE | 2024-09-25 02:11 | ED_ITS ---
HPI - Abdominal Pain 2 General: Chief Complaint: Abdominal Pain Stated Complaint: n/v/d severe pain 5 days GOP1 Time Seen by Provider: 09/24/24 23:11 History of Present Illness: 29-year-old female with nausea and vomit ing and diarrhea x 4 days. Has diffuse abdominal pain. No fever. Related Data Home Medications ?Medication ?Instructions ?Recorded ?Confirmed levonorgestrel (Mirena) See Rx Instructions .Route . COMPLEX 02/18/20 07/14/24 oirrpule-svd-rzpf-FA-Ca carb-vit K 1 tab PO DAILY 08/1007/14/24 18 mg iron-400 mcg-500 mg tablet (Women's Daily Formula) propranolol 40 mg tablet 40 mg PO BID 05/22/23 Previous Rx's ?Medication ?Instructions ?Recorded diclofenac sodium 75 mg 75 mg PO Q12H PRN pain #20 t abs 05/22/23 tablet,delayed release dicyclomine 20 mg tablet 20 mg PO QID #30 tabs ondansetron 4 mg disintegrating 4 mg PO Q8H 5 days #15 tabs 09/25/24 tablet Allergies Allergy/AdvReac Type Severity Reaction Status Date / Time amoxicillin Allergy ALGY-Anaphy Verified 09/24/24 20:54 laxis Sulfa (Sulfonamide Allergy ALGY-Anaphy Verified 09/24/24 20:54 Antibiotics) laxis PFSH ED 2 PFSH: Medical History No pertinent family history No pertinent past medical history Social History Smoking and tobacco/nicotine status: never used tobacco/nicotine Physical Exam 2 Const: COMMON NORMALS: no acute distress, average body habitus, patient oriented x3, no limitations, healthy appearing, alert and well nourished Neck/C-Spine: COMMON NORMALS: no JVD Resp: COMMON NORMALS: normal respiratory effort, No retractions, No use of accessory muscles, clear to auscultation bilaterally and percussion normal A USCULTATION: clear to auscultation bilaterally PERCUSSION: percussion normal Cardio: COMMON NORMALS: no JVD, regular rate, regular rhythm, S1 normal heart sound present, S2 normal heart sound present, No gallops present (Cardio), No clicks present (Cardio), No murmurs present (Cardio), No rub (Cardio) and Peripheral pulses 2+ throughout RATE: regular rate RHYTHM: regular rhythm HEART SOUNDS: S1 normal heart sound present and S2 normal heart sound present PERIPHERAL PULSES: Peripheral pulses 2+ throughout GI: COMMON NORMALS: Normal to inspection, nondistended, normoactive bowel sounds present, Soft to palpation, No hepatosplenomegaly present, no masses and no bruits; negative for non-tender (Diffuse tenderness. No localized tenderness.) P ALPATION: Yes Soft to palpation and Yes No hepatosplenomegaly present Neuro: COMMON NORMALS: patient oriented x3 SENSORIUM/ORIENTATION: Yes alert Course 2 Vital Signs: Vital signs: Vital Signs Temperature 98.7 F 09/24/24 20:52 Pulse Rate 93 09/24/24 23:26 Respiratory Rate 18 09/24/24 23:26 Blood Pressure 128/94 09/24/24 23:26 Pulse Oximetry 98 09/24/24 23:26 Oxygen Delivery Me thod Room Air 09/24/24 23:26 MDM - Abdominal Pain Medical Decision Making Patient with diffuse abdominal tenderness and nausea and vomiting and diarrhea x [address] shows findings consistent with acute gastroenteritis. Patient feeling better after treatment here in the ER. Will discharge patient with Zofran Bentyl recommended IV fluids. No evidence of surgical pathology at this time. Small incidental left ovarian cyst noted and discussed with patient as well. Lab Data 09/24/24 23:14 09/24/24 23:14 Labs/Radiology: Radiology Impressions Abdomen/Pelvis CT 09/25/24 00:44 IMPRESSION: 1. Prominent fluid in the small bowel and colon, please correlate for a gastroenteritis. 2. Left ovarian cysts measuring up to 16 mm, likely follicular. 3. IUD in the uterine cavity. Laboratory Results WBC 13.30 10^3/uL (3.29-11.43) H 09/24/24 23:14 RBC 4.94 10^6/uL (3.85-5.65) 09/24/24 23:14 Hgb 14.20 g/dL (11.27-16.99) 09/24/24 23:14 Hct 43.1 % (36-47) 09/24/24 23:14 MCV 87.2 fl (85-98) 09/24/24 23:14 MCH 28.7 pg (27-33) 09/24/24 23:14 MCHC 32.9 g/dL (30-55) 09/24/24 23:14 RDW 13.8 % (12.1-15.1) 09/24/24 23:14 Plt Count 208 10^3/cmm (157-399) 09/24/24 23:14 MPV 13.2 fL (7.4-10.4) H 09/24/24 23:14 Neut % (Auto) 68.5 % 09/24/24 23:14 Lymph % (Auto) 22.6 % 09/24/24 23:14 Bryan % (Auto) 4.7 % 09/24/24 23:14 Eos % (Auto) 3.7 % 09/24/24 23:14 Baso % (Auto) 0.3 % 09/24/24 23:14 Neut # (Auto) 9.10 10^3/uL (1.8-7.7) H 09/24/24 23:14 Lymph # (Auto) 3.0 10^3/uL (0.8-4.8) 09/24/24 23:14 Bryan # (Auto) 0.6 10^3/uL (0.2-0.9) 09/24/24 23:14 Eos # (Auto) 0.5 10^3/uL (0.0-0.8) 09/24/24 23:14 Baso # (Auto) 0.0 10^3/uL (0.0-0.1) 09/24/24 23:14 Nucleated RBC % (auto) 0 % 09/24/24 23:14 Nucleated RBCs # 0.0 /100WBC 09/24/24 23:14 Sodium 137 mmol/L (136-145) 09/24/24 23:14 Potassium 3.8 mmol/L (3.5-5.1) 09/24/24 23:14 Chloride 102 mmol/L (98-107) 09/24/24 23:14 Carbon Dioxide 21 mmol/L (22-29) L 09/24/24 23:14 Anion Gap 17.8 (5-19) 09/24/24 23:14 BUN 13 mg/dL (6-20) 09/24/24 23:14 Creatinine 0.8 mg/dL (0.5-0.9) 09/24/24 23:14 GFR Calculation 83.7 mL/min (90-130) L 09/24/24 23:14 Glucose 89 mg/dL (65-115) 09/24/24 23:14 Calculated Osmolality 284 mOsm/kg (285-295) L 09/24/24 23:14 Calcium 9.3 mg/dL (8.5-10.5) 09/24/24 23:14 Total Bilirubin 0.4 mg/dL (0.15-1.2) 09/24/24 23:14 AST 16 U/L (0-32) 09/24/24 23:14 ALT 11 U/L (0-33) 09/24/24 23:14 Alkaline Phosphatase 84 U/L (35-105) 09/24/24 23:14 Total Protein 7.5 g/dL (6.6-8.7) 09/24/24 23:14 Albumin 4.2 g/dL (3.5-5.2) 09/24/24 23:14 Globulin 3.3 g/dL (1.3-4.6) 09/24/24 23:14 Lipase 30 U/L (13-60) 09/24/24 23:14 HCG, Qual Negative (Negative) 09/24/24 23:38 Urine Color Yellow (Yellow) 09/24/24 23:38 Urine Appearance Clear (CLEAR) 09/24/24 23:38 Urine pH 5.5 (5-7) 09/24/24 23:38 Ur Specific [place] 1.020 (1.005-1.030) 09/24/24 23:38 Urine Protein Negative (Negative) 09/24/24 23:38 Urine Glucose (UA) Negative (Normal) 09/24/24 23:38 Urine Ketones 2+ (Negative) H 09/24/24 23:38 Urine Blood Negative (Negative) 09/24/24 23:38 Urine Nitrate Negative (Negative) 09/24/24 23:38 Urine Bilirubin Negative (Negative) 09/24/24 23:38 Urine Urobilinogen 1.0 mg/dL (Negative) 09/24/24 23:38 Ur Leukocyte Esterase 1+ (Negative) A 09/24/24 23:38 Urine RBC 3-5 /hpf (0-2) 09/24/24 23:38 Urine WBC 0-5 /hpf (0-5) 09/24/24 23:38 Ur Squamous Epith Cells 6-10 /hpf (0-5) 09/24/24 23:38 Amorphous Sediment Not Reportable 09/24/24 23:38 Urine Bacteria None seen /hpf (NONE) 09/24/24 23:38 Hyaline Casts 0-4 /lpf H 09/24/24 23:38 All radiology interpretation(s) finalized by discharge Discharge Plan Discharge Patient Disposition: Home Clinical Impression: Gastroenteritis Condition: Stable Prescriptions: New ondansetron 4 mg tablet,disintegrating 4 mg PO Q8H 5 Days Qty: 15 0RF dicyclomine 20 mg tablet 20 mg PO QID Qty: 30 0RF No Action Mirena 20 mcg/24 hours (5 yrs) 52 mg Intrauterine Device See Rx Instructions .ROUTE .COMPLEX Rx Instructions: DIRECTED propranolol 40 mg tablet 40 mg PO BID Women's Daily Formula 18 mg iron-400 mcg-500 mg Tablet 1 tab PO DAILY diclofenac sodium 75 mg tablet,delayed release (DR/EC) 75 mg PO Q12H PRN (Reason: pain) Qty: 20 0RF Discharge Orders: Discharge ED (Routine); Ordered 09/25/24 Ordered By: Toby Xiong Referrals: Rafael Molina MD [Primary Care Provider, Family Practice] Discharge Diet: Soft Mechanical Patient Instructions: Opioid Safety, Pain Management Print Language: Swedish Coding Level of Care Code ED Teacher Of The Sight Impaired for Iram Briones
[2024-09-25 02:19] VITALS: BP 127/81; PULSE 100; RESP 16; O2SAT 100
== END 2024-09-25 02:20 | disposition home or self-care (01) ==
PROVIDERS: Emergency Provider Emergency Medicine; PCP Family Medicine
DX: K52.9 Noninfective gastroenteritis and colitis, unspecified (principal)
CPT/HCPCS: 74177; 80053; 81001; 81025; 83690; 85025; 96361; 96374; 96375; 99285; J0780; J2405; J7030